=== PATIENT | male | born 1960 | race Caucasian/White ===

== ENCOUNTER 2018-01-01 20:51 | Observation (INO) ==
[2018-01-01] MEDS ORDERED: Nitroglycerin 0.4 MG TAB.SUBL SL PRN (22:52)
--- NOTE | 2018-01-01 22:58 | Emergency Department Note ---
Disposition Clinical Impression: CHF (congestive heart failure) Qualifiers: Heart failure type: unspecified Heart failure chronicity: acute on chronic Qualified Code(s): I50.9 - Heart failure, unspecified Disposition: Admitted As Inpatient Condition: Good Referrals: Richy Mc DO [Primary Care Provider] - Emanuel Baires Jr, MD [Family Provider] - Forms: ED Satisfaction Letter Time of Disposition: 00:25 SOB HPI - General Chief Complaint: ED Shortness of Breath/Dyspnea Stated Complaint: "CHF" Time Seen by Provider: 01/01/18 22:44 Source: patient Limitations: no limitations - History of Present Illness This is a 57-year-old male who reports being short of breath for the last 6 weeks, but especially worse in the 2 days prior to arrival. He has had a significant workup through his family doctor, with several test just 2 days ago , but did not know the results until he went to urgent care earlier today. At that time, he was told that he has heart failure with a poor ejection fraction. He was also recommended to come to the emergency department for treatment. - Related Data Home Medications Medication Instructions Recorded Confirmed Betaine HCl 01/01/18 Allergies Allergy/AdvReac Type Severity Reaction Status Date / Time No Known Allergies Allergy Verified 01/01/18 15:31 All systems ED: reviewed and negative except as stated. Cardiovascular: Denies: chest pain Respiratory: Reports: dyspnea, other (Orthopnea) Gastrointestinal: Denies: abdominal pain, nausea, vomiting, diarrhea, constipation, hematemesis, melena, hematochezia Past Medical History - Past Medical History Medical history: Reports: hypertension Psychiatric history: Reports: no psych history - Social History Smoking Status: Current some day smoker Smokeless Tobacco Status: No Alcohol use: Reports: occasionally Drug use: Reports: marijuana Physical Exam - General Limitations: no limitations General appearance: alert, in no apparent distress - Head Head exam: atraumatic, normocephalic, normal inspection - Eye Eye exam: Present: normal appearance, PERRL, EOMI - Chest Chest inspection: Present: normal inspection, symmetric chest wall rise - Respiratory Respiratory exam: Present: other (Breath sounds are clear bilaterally, diminished in the bases) - Cardiovascular Cardiovascular exam: Present: normal rhythm, tachycardia, normal heart sounds - Abdominal Exam Abdominal exam: Present: soft, Non-Tender. Absent: tenderness, distention, guarding, rebound, rigidity - Extremities Exam Extremities exam: Present: normal inspection, full ROM. Absent: tenderness, pedal edema - Neurological Exam Neurological exam: Present: alert, oriented X3 - Psychiatric Psychiatric exam: Present: normal affect, normal mood - Skin Skin exam: Present: warm, dry, intact, normal color Course Course Narrative: I reviewed his echocardiogram, chest x-ray, and pulmonary function test reports. The echocardiogram showed an ejection fraction of 25%. Vital Signs Temperature 98.3 F 01/01/18 20:58 Pulse Rate 116 01/01/18 20:58 Respiratory Rate 22 01/01/18 20:58 Blood Pressure 130/105 01/01/18 20:58 O2 Sat by Pulse Oximetry 97 01/01/18 20:58 Temperature 98.3 F 01/01/18 22:52 Pulse Rate 108 01/01/18 23:17 Respiratory Rate 14 01/01/18 23:17 Blood Pressure 134/94 01/01/18 23:17 O2 Sat by Pulse Oximetry 97 01/01/18 23:17 Oxygen Delivery Oxygen Delivery Room Air Shortness of Breath/Dyspnea - [facility] Narrative Medical decision making narrative: This is a 57-year-old male with congestive heart failure. I discussed his case with the on-call hospitalist, who accepted him for admission He does not appear to be fluid overloaded, and was given nitroglycerin and enalaprilat for afterload reduction. - Medical Records Medical records reviewed: Yes I reviewed the patient's medical records. Summary of his echo is noted above. - Lab Data Lab results narrative: CBC was unremarkable BMP was unremarkable Troponin was slightly elevated at 0.07 Result diagrams: 01/01/18 23:00 01/01/18 23:00 Lab Results 01/01/18 01/01/18 Range/Units 23:00 23:00 WBC 9.5 (4.3-11.1) K/mcL RBC 4.85 (4.19-5.50) M/mcL Hgb 15.2 (12.9-16.9) g/dL Hct 45.3 (37.5-50.1) % MCV 93.4 (83.0-100.0) fL MCH 31.3 (28.0-33.3) pg MCHC 33.6 (31.6-35.5) g/dL RDW 14.3 (11.5-14.5) % Plt Count 174 (140-400) K/mcL MPV 13.3 H (9.4-12.4) fL Immature Gran % 0.3 (0-4) % Seg Neutrophils % 82.5 % Lymphocytes % 10.6 % Monocytes % 5.4 % Eosinophils % 0.9 % Basophils % 0.3 % Neutrophils # 7.9 (1.6-8.9) K/mcL Lymphocytes # 1.0 (0.6-4.6) K/mcL Monocytes # 0.5 (0.0-1.3) K/mcL Eosinophils # 0.1 (0.0-0.6) K/mcL Basophils # 0.0 (0.0-0.2) K/mcL Sodium 139 (136-145) mEq/L Potassium 3.8 (3.5-5.1) mEq/L Chloride 110 H (98-107) mEq/L Carbon Dioxide 19 L (23-29) mEq/L BUN 17 (6-20) mg/dL Creatinine 0.94 (0.70-1.30) mg/dL Est GFR ( Amer) > 60 (> 60) Est GFR (Non-Af Amer) > 60 (> 60) BUN/Creatinine Ratio 18 (6-26) Glucose 120 H (70-105) mg/dL Calculated Osmolality 291 (280-300) Calcium 9.3 (8.6-10.3) mg/dL Troponin I 0.07 H* (< 0.04) ng/mL - Radiology Data Radiology results reviewed: Yes I reviewed the patient's radiology results. Chest x-ray showed interstitial edema - EKG Data EKG attestation: Yes I reviewed and interpreted this EKG. EKG results narrative: ECG shows sinus tachycardia, 117 bpm, normal intervals, normal axis, biphasic T waves in V5 with T-wave inversion in V6, unremarkable ST segments He had a time period while in the emergency department with several episodes of bigeminy. Critical Care Time Critical Care Time: Yes Total Critical Care Time: 20 Attestation: Time spent was independent of separately billable procedures
[2018-01-01 23:11] LABS: Basophils % 0.3 %; Eosinophils # 0.1 K/mcL (0.0-0.6); Eosinophils % 0.9 %; Hematocrit 45.3 % (37.5-50.1); Hemoglobin 15.2 g/dL (12.9-16.9); Immature Granulocytes % 0.3 % (0-4); Lymphocytes % 10.6 %; Mean Corpuscular HGB Conc 33.6 g/dL (31.6-35.5); Mean Corpuscular Hemoglobin 31.3 pg (28.0-33.3); Mean Corpuscular Volume 93.4 fL (83.0-100.0); Mean Platelet Volume 13.3 fL (9.4-12.4); Monocytes # 0.5 K/mcL (0.0-1.3); Monocytes % 5.4 %; Neutrophils # 7.9 K/mcL (1.6-8.9); Platelet Count 174 K/mcL (140-400); Red Blood Count 4.85 M/mcL (4.19-5.50); Red Cell Distribution Width 14.3 % (11.5-14.5); Segmented Neutrophils % 82.5 %
[2018-01-01 23:32] LABS: BUN/Creatinine Ratio 18 (6-26); Blood Urea Nitrogen 17 mg/dL (6-20); Calcium 9.3 mg/dL (8.6-10.3); Carbon Dioxide 19 mEq/L (23-29); Chloride 110 mEq/L (98-107); Glucose 120 mg/dL (70-105); Osmolality,Calculated 291 (280-300); Potassium 3.8 mEq/L (3.5-5.1); Sodium 139 mEq/L (136-145); eGFR For Non-African Americans > 60 (> 60)
[2018-01-01 23:40] LABS: Troponin I 0.07 ng/mL (< 0.04)
[2018-01-02] MEDS ORDERED: Ibuprofen 400 MG TABLET PO ONE (04:15)
[2018-01-02] MEDS ORDERED: Naloxone 0.4 MG/ML INJ IVP PRN (04:26)
[2018-01-02] MEDS ORDERED: Acetaminophen 325 MG TABLET PO PRN (04:26)
[2018-01-02] MEDS ORDERED: traMADol 50 MG TABLET PO PRN (04:26)
[2018-01-02] MEDS: *HR* Heparin 5,000 UNIT/ML VIAL SQ SCH ×2 (05:04→18:03)
--- NOTE | 2018-01-02 05:36 | Internal Med History&Physical ---
Date of Encounter: 01/02/18 Time of Encounter: 04:05 Internal Medicine - H&P: HPI Chief complaint: SOB; orthopnea; chest tightness Admitted From: Emergency Dept Plans for Post Hospital Care: Home History of present illness: Mr. Wiggins is a 57 year old male who presents with a several month history of progressive dyspnea, dyspnea on exertion, orthopnea, and paroxysmal nocturnal dyspnea. These symptoms provoked anxiety attacks and panic attacks since he could not breathe. He saw his family doctor last week who ordered an echocardiogram and PFTs this past Tuesday (3 days ago). He felt that he was having panic attacks because of the difficulty in breathing. Over the weekend, his symptoms worsened to the point where he could not breathe and was becoming more and more anxious. He therefore came to the ER where he was seen and evaluated and diagnosed with acute congestive heart failure. He was subsequently admitted to the hospitalist service. Upon my assessment of the patient, he confirms the above history. He has had some vague chest tightness, especially with exertion. He denies any fevers, cough, congestion, shakes, chills, or night sweats. He denies any prior cardiac history. He has had bouts of hypertension in the past, but he has never been treated. He states normally his blood pressure runs about 120s-130s systolic. He denies any recent tick bites or mosquito bites or bug bites resulting in any flulike illness this summer. He denies any history of thyroid disease. He is long-time smoker and quit roughly 1 week ago. He denies any heavy alcohol use or any drug use. He denies any leg or ankle swelling, but he has complained of some increasing abdominal girth and fullness in his abdomen. I reviewed his echocardiogram that was performed just 3 days ago. He has finding of ejection fraction of 25% with a dilated left ventricle and moderate pulmonary hypertension. He also had pulmonary function tests performed which revealed mild obstructive airways disease. Past Med Surg Social Fam HX - Past Medical History Attestation: Yes The following information was validated with the patient. Source: patient, old records reviewed, other (ER notes; ECHO/PFTS performed 3 days ago) Medical history: COPD, hypertension Psychiatric history: no psych history - Past Surgical History Surgical History: no surgical history (except dental) Additional surgical history: dental - Social History Smoking Status: Former smoker (quit 1 week ago; > 40 pack year h/o smoking) Smokeless Tobacco Status: No Alcohol use: occasionally Drug use: marijuana Occupational status: employed Current living situation: Home - Independent Activity Level: Independent ambulation Recent Out of Country Travel Within the Last 8 Weeks: No - Family History Mother Living Status: Still Living Hx Family Cardiac Disorders: No Father Living Status: Still Living Hx Family Cardiac Disorders: No Internal Medicine - H&P: Meds 3 Allergy/AdvReac Type Severity Reaction Status Date / Time No Known Allergies Allergy Verified 01/01/18 15:31 - Constitutional Constitutional: fatigue, weight gain, no chills, no fever(s), no night sweats - EENT Eyes: no blurry vision, no change in vision Ears: no ear pain, no tinnitus Nose, mouth and throat: no nasal congestion, no sinus pressure, no sore throat - Cardiovascular Cardiovascular ROS IM: chest pain (chest tightness with exertion), diaphoresis, dyspnea, dyspnea on exertion, orthopnea, palpitations, paroxysmal nocturnal dyspnea - Respiratory Respiratory: dyspnea, dyspnea on exertion, no cough, no hemoptysis, no chest congestion, no excessive phlegm production, no change in phlegm color - Gastrointestinal Gastrointestinal: bloating, no abdominal pain, no diarrhea, no hematemesis, no hematochezia, no melena, no nausea, no vomiting - Genitourinary Genitourinary ROS male: no dysuria, no flank pain, no hematuria - Musculoskeletal Musculoskeletal ROS IM: no arthralgias, no back pain - Integumentary Integumentary IM: no rash, no jaundice - Neurological Neurological ROS: no dizziness, no focal weakness, no frequent falls, no headache(s) - Psychiatric Psychiatric: anxiety, no depression - Endocrine Endocrine IM: fatigue, no cold intolerance, no heat intolerance, no polydipsia, no polyphagia, no polyuria - Allergic/Immunologic Allergic/Immunologic: no GI upset with certain foods - Constitutional Vitals: Temp Pulse Resp BP Pulse Ox 98.9 F 97 16 116/79 96 01/02/18 03:24 01/02/18 03:24 01/02/18 03:24 01/02/18 03:24 01/02/18 03:24 General appearance: Present: cooperative, mild distress (anxious), A&O X 3, pleasant, answers questions appropriately Exam: see below - Head Head exam: Present: atraumatic, normal inspection - Eye Eye exam: Present: EOMI, PERRL. Absent: scleral icterus Pupils: Present: normal accommodation - ENT ENT exam: Present: mucous membranes dry, normal exam, normal oropharynx - Neck Neck exam general surgery: Present: full ROM, supple. Absent: lymphadenopathy, tenderness, nuchal rigidity, thyromegaly - Respiratory Respiratory exam: Present: rales (both bases about 1/[address] up), respiratory distress (mild). Absent: accessory muscle use, chest wall tenderness, prolonged expiratory phase, rhonchi, wheezes, tachypnea - Cardiovascular Cardiovascular exam: Present: distant heart sounds, RRR, +S1, +S2. Absent: diastolic murmur, JVD (not appreciated), systolic murmur - GI/Abdominal GI/Abdominal exam: Present: normal bowel sounds. Absent: hepatomegaly, mass, rebound, splenomegaly, tenderness Additional comments: + increased girth - Extremities Exam Extremities exam: Present: full ROM, normal capillary refill, pedal edema (trace ), warm, radial pulses palpable and symmetrical. Absent: calf tenderness, joint swelling, tenderness - Back Exam Back exam: Absent: CVA tenderness (L), CVA tenderness (R) - Neurological Exam Neurological exam: Present: alert, CN II-XII intact, oriented X3, no focal deficits, strengths equal and symetr throughout - Psychiatric Psychiatric exam: Present: normal affect, normal mood - Skin Skin exam: Present: dry, intact, warm Internal Med - H&P Results - Labs CBC & Chem 7: 01/01/18 23:00 01/01/18 23:00 - EKG Data -: EKG Interpreted by Myself - EKG Data Prior EKG available for review: no EKG comments: 01/02/18 05:45 sinus tachycardia; high voltage with LVH criteria - Diagnostic Studies Chest x-ray Status: image reviewed by me (large heart/dialted heart shadow; CHF findings) - Assessment and plan (1) Congestive heart failure Current Visit: Yes Status: Acute Assessment and plan: 1. New diagnosis of acute CHF. 2. Etiology unclear. 3. Will treat with diuretics, low dose BB (Coreg), fluid restriciton, ASA, STATIN, and, when hemodynamically stable, add JULIETA. 4. Consult cardiology for likely LHC to evaluate for CAD/ischemic etiology. 5. ECHO already performed 3 days ago and reviewed -- EF 25% with dilated LV and pulmonary HTN (moderate). Qualifiers: Heart failure type: systolic Heart failure chronicity: acute Qualified Code(s): I50.21 - Acute systolic (congestive) heart failure (2) Dilated cardiomyopathy Current Visit: Yes Status: Acute Assessment and plan: 1. Cardiology consult as above. 2. Needs C at some point to evaluate for CAD. 3. Check TSH. 4. If etiology undetermined, could possibly be due to viral etiology ( Coxsackie virus, summertime viruses) or tick-borne illness. May need ID consult and/or endocardial biopsy/work-up (?[facility]). (3) COPD (chronic obstructive pulmonary disease) Current Visit: Yes Status: Chronic Assessment and plan: 1. No acute process. 2. Will order PRN Duonebs. Qualifiers: COPD type: emphysema Emphysema type: panlobular Qualified Code(s): J43.1 - Panlobular emphysema (4) DVT prophylaxis Current Visit: Yes Status: Acute Assessment and plan: 1. Heparin SQ.
[2018-01-02] MEDS ORDERED: Ipratropium/Albuterol Neb 3 ML IH PRN (06:00)
--- NOTE | 2018-01-02 08:01 | Cardiology Consult Note ---
Date of Encounter: 01/02/18 Time of Encounter: 09:17 Assessment and Plan (1) Congestive heart failure Current Visit: Yes Status: Acute New onset, possibly secondary to ischemic cardiomyopathy or alcohol abuse Multiple risk factors (age, smoker, htn) ECHO - EF 25%, dilated RV and LV, severe global LV systolic dysfunction, moderate pulmonary HTN Recommend cardiac catheterization to evaluate for CAD Continue Lasix IV 40 BID as tolerated Continue home meds as tolerated Qualifiers: Heart failure type: systolic Heart failure chronicity: acute Qualified Code(s): I50.21 - Acute systolic (congestive) heart failure (2) Dilated cardiomyopathy Current Visit: Yes Status: Acute See above Consider ischemic or alcoholic or idiopathic cause (3) DVT prophylaxis Current Visit: Yes Status: Acute SC Heparin Discussion w patient/family: The assessment and plan as outlined above was discussed with the patient and/or family members who expressed understanding and agreement. All questions were answered. Thank you for involving us in the care of your patient. Please call with any questions. History of Present Illness Consult date: 01/02/18 Requesting physician: Alan York Consult reason: New onset CHF Chief complaint: Shortness of breath History of present illness: Mr. Wiggins is a 57 year old male with a history of hypertension, COPD, tobacco use who presented with new onset CHF found to have an EF 25% and severe global left ventricle systolic dysfunction on 12/30 ECHO, no previous cardiac history. He reports progressive shortness of breath and bloating over the past 8 weeks, mostly over the past week. He initially attributed his symptoms to anxiety, as his job is very stressful and requires a lot of travel. He's also had recent relational stressors that he thought may have caused increased anxiety. He has smoked on and off for many years with an estimated 40 pack year history. He recently quit smoking a couple weeks ago. He admits to drinking 5-6 beers per day 3-4 times per week. He denies any chest pain, or radiation of pain. He complains mostly of bloating and shortness of breath, especially on exertion. Past Med Surg Social Fam HX - Past Medical History Medical history: COPD, hypertension Psychiatric history: no psych history - Past Surgical History Surgical History: no surgical history (except dental) Additional surgical history: dental - Social History Smoking Status: Former smoker (quit 1 week ago; > 40 pack year h/o smoking) Smokeless Tobacco Status: No Alcohol use: occasionally Drug use: marijuana - Family History Mother Living Status: Still Living Hx Family Cardiac Disorders: No Father Living Status: Still Living Hx Family Cardiac Disorders: No Medications and Allergies No Known Home Drugs 01/02/18 [History] 3 Allergy/AdvReac Type Severity Reaction Status Date / Time No Known Allergies Allergy Verified 01/02/18 08:30 All Systems Review: The remainder of the systems were reviewed and are negative - Cardiovascular Cardiovascular: dyspnea on exertion, orthopnea, no chest pain at rest, no chest pain with exertion - Gastrointestinal Gastrointestinal: other (admits to bloating), no abdominal pain - Psychiatric Psychiatric: anxiety Physical Examination Vital Signs, Last 4 Hours Temp Pulse Resp BP Pulse Ox 01/02/18 07:21 98.1 F 100 16 111/77 96 General: Conversant, No Apparent Distress HEENT: Atraumatic, Normocephaly Neck: No JVD Cardiac: Reg Rate and Rhythm, Normal S1 and S2, No Murmur Lungs: Normal Breath Sounds, No Wheeze, Rales, Rhonchi Neuro: Alert and responsive Abdomen: Soft, Non-Tender Musculoskeletal: No Chest Wall Tenderness Extremities: No Edema Results 01/01/18 23:00 01/01/18 23:00 Lab Results 01/02/18 05:27 Troponin I 0.06 H* Consult Discharge Plan - Plan Referrals: Richy Mc DO [Primary Care Provider] - Emanuel Baires Jr, MD [Family Provider] -
[2018-01-02] MEDS: Furosemide 40 MG/4 ML VIAL IVP SCH ×2 (08:30→17:58)
[2018-01-02] MEDS: Aspirin 81 MG TAB.CHEW PO SCH (08:30)
--- NOTE | 2018-01-02 10:05 | Pre-Sedation Evaluation ---
Pre-sedation evaluation - Pre-sedation checklist Date of procedure: 01/02/18 Procedure: [facility] Recent Vitals: Last Vital Signs Temp 98.1 F 01/02/18 07:21 Pulse 100 01/02/18 07:21 Resp 16 01/02/18 07:21 BP 111/77 01/02/18 07:21 Pulse Ox 96 01/02/18 07:21 H&P (including ROS) documented in medical record: No Previous reaction to sedatives/anesthetics: No Dietary Status: NPO after Midnight Dentition: No loose teeth or bridges ASA Classification *see protocol: CLASS II-Mild systemic disease Plan of Care: Pt appropriate candidate for procedure/moderate/conscious sedation , Risks/benefits of procedure/sedation discussed w/ patient/family Cardiac Registry (Cardio Only) - Functional Capacity Functional Capacity: >=4 METS with symptoms - Clincal Frailty Scale Clinical Frailty Scale: Managing Well
--- NOTE | 2018-01-02 12:33 | Internal Med Progress Note ---
Hospitalist Progress Note - Encounter Date of Encounter: 01/02/18 Time of Encounter: 10:25 - Subjective Interval History: H&P reviewed. 57-year-old male with history of COPD, hypertension, tobacco abuse, is admitted for new onset systolic heart failure. Codon on 12/30 showed EF of 25% with moderately dilated LV and mildly dilated/hypokinetic RV. Assoiated with moderate to severe mitral regurgitation and moderate pHTN. States that his breathing is about the same and complains of significant orthopnea. Not requiring any O2 however. No chest pain, diaphoresis, N/V. He drinks about 5-6 beers/day 3-4x/week. - Exam Vitals: Temp Pulse Resp BP Pulse Ox 98.1 F 98 16 99/72 98 01/02/18 11:00 01/02/18 11:00 01/02/18 11:00 01/02/18 11:00 01/02/18 11:00 Exam: General: Alert and oriented, not in acute distress. Cardiovascular:Normal S1 & S2, No JVD. Pulse regular. Lungs: Bibasilar crackles Abdomen:Soft, non-tender, no rigidity. Extremities:No deformity or swelling Skin:Normal color, no rash, no lesions. - Assessment and Plan (1) Congestive heart failure Current Visit: Yes Status: Acute Assessment and Plan: New diagnosis of acute systolic HF, ECHO already performed 3 days ago and reviewed -- EF 25% with dilated LV and RV as well as pulmonary HTN (moderate) ?EtOH-related, ischemic workup pending check TSH IV lasix 40mg BID ASA, statin, will hold bb as he has not been on it and he is in acute decompensation start JULIETA if BP tolerates cardiology consult for ischemic eval (2) Dilated cardiomyopathy Current Visit: Yes Status: Acute Assessment and Plan: as above (3) COPD (chronic obstructive pulmonary disease) Current Visit: Yes Status: Chronic Assessment and Plan: not in acute exacerbation PRN Duonebs. (4) DVT prophylaxis Current Visit: Yes Status: Acute Assessment and Plan: Heparin SQ - Time Spent with Patient Total time spent is greater than 50% in coordination of care (as documented) at patient's floor/unit and/or counseling patient: Plan of Care Discussed with: nurse Internal Medicine: Result - Labs CBC & Chem 7: 01/01/18 23:00 01/01/18 23:00 Labs: Cardiac Enzymes 01/02/18 Range/Units 05:27 Troponin I 0.06 H* (< 0.04) ng/mL Consult Discharge Plan - Plan Referrals: Richy Mc DO [Primary Care Provider] - Emanuel Baires Jr, MD [Family Provider] - (1) Congestive heart failure Qualifiers: Heart failure type: systolic Heart failure chronicity: acute Qualified Code( s): I50.21 - Acute systolic (congestive) heart failure (3) COPD (chronic obstructive pulmonary disease) Qualifiers: COPD type: emphysema Emphysema type: panlobular Qualified Code(s): J43.1 - Panlobular emphysema
--- NOTE | 2018-01-02 13:54 | Pre-Sedation Evaluation ---
Pre-sedation evaluation - Pre-sedation checklist Date of procedure: 01/02/18 Procedure: [facility] Recent Vitals: Last Vital Signs Temp 98.1 F 01/02/18 11:00 Pulse 98 01/02/18 11:00 Resp 16 01/02/18 11:00 BP 99/72 01/02/18 11:00 Pulse Ox 98 01/02/18 11:00 H&P (including ROS) documented in medical record: No Previous reaction to sedatives/anesthetics: No Dietary Status: NPO after Midnight Dentition: No loose teeth or bridges ASA Classification *see protocol: CLASS II-Mild systemic disease Cardiac Registry (Cardio Only) - Functional Capacity Functional Capacity: >=4 METS with symptoms - Clincal Frailty Scale Clinical Frailty Scale: Vulnerable
[2018-01-02] MEDS ORDERED: 0.9 % Sodium Chloride 1,000 ML ONE ×2 (15:56→16:27)
[2018-01-02] MEDS ORDERED: *HR* Heparin 10,000 UNIT/10 ML VIAL ONE (15:57)
[2018-01-02] MEDS ORDERED: Nitroglycerin 1,000 MCG/10 ML VIAL IV ONE (15:57)
[2018-01-02] MEDS ORDERED: Heparin 1,000 UNITS/500 mL 500 ML ONE (15:57)
[2018-01-02] MEDS ORDERED: ISOVUE-370 200 ML INFUS..BTL IV ONE (15:57)
[2018-01-02] MEDS ORDERED: *HR* FentaNYL (PF) 100 MCG/2 ML VIAL ONE (16:27)
[2018-01-02] MEDS ORDERED: *HR* Midazolam HCl 2 MG/2 ML VIAL ONE (16:27)
--- NOTE | 2018-01-02 17:20 | Invasive Diagnostic Lab Proc ---
Name: Lewis Wiggins Date of Study: 01/02/2018 Date: 1960 Ht: 68.9in Medical Record#: [id number] Age: 57 Wt: 165.35lb Gender: Male BSA: 1.9 Order #: [id number] BMI: 24.49 Physicians Procedure Physician: oMy Tesfaye MD Referring MD: Referring MD: Staff Name Position Time In Ej Tejada RN Regulatory Agency Director 04:27 PM Allison Rahman RN Monitor 04:27 PM Svetlana Valenzuela RT (R) Scrub 04:35 PM Procedures Performed Procedure L HRT ARTERY/VENTRICLE ANGIO Pre-Procedure Checklist Informed consent is complete signed and on chart. H&P is on chart. ID band is on and ID verified with patient. Patient NPO for procedure The procedure was described for the patient and questions were answered. Blood Pressure: 111/77 ECG is on chart. Rhythm: NSR Plan of Care Patient will tolerate the procedure without complications. Adequate level of comfort will be maintained. Hemodynamics will remain stable Patient will recover from procedure without complications. Respiratory function will be maintained. Cardiac rhythm will remain stable. Patient temperature will be maintained. Patient and/or family have verbalized understanding of the procedure. Patient Education Chief Complaint/Reason for Test: Cardiac Cath Developmental Category: Adult (18-64 years) Developmentally Appropriate for Age: Yes Learning Barriers: None Education Needs: Procedure Education Method: Verbal Information Taught: Cardiac Cath Educational Evaluation: Able to repeat information Intravenous Access Time IV Size Location DC'd Fluid/Drip Rate Units RN 18g 1 /" Patent On Arrival Rt Antecubital Allergies No Known Allergies Vital Signs Time BP (mmHg) HR (bpm) O2 Sat. RR (bpm) LOC 04:32 PM / % 5 = Fully awake and oriented or at pre-proc level 04:32 PM / % 4 = Oriented but drowsy 04:33 PM 110 / 87 100 98 % 15 04:38 PM 118 / 91 102 97 % 19 04:43 PM 114 / 87 101 96 % 19 04:48 PM 108 / 80 94 96 % 11 04:53 PM 117 / 75 86 94 % 18 04:58 PM 114 / 82 86 98 % 10 Procedural Medications Time Medication Dose Units Method Given By 04:32 PM Oxygen 2 L/min nasal cannula Ej Tejada RN 04:35 PM Versed 1 mg Intravenous Ej Tejada RN 04:35 PM Fentanyl 50 mcg Intravenous Ej Tejada RN 04:47 PM Lidocaine 2% 10 ml Subcutaneous Moy Tesfaye MD ASA Classification: CLASS II- Mild systemic disease (i.e. well-controlled diabetes, hypertension, asthma, cigarette smoking) Nirmala Score Preprocedure Postprocedure Activity 2- Moves 4 extremities sustained head lift Activity 2- Moves 4 extremities sustained head lift Circulation 2- SBP +/= 20 points of pre-anesthetic level Circulation 2- SBP +/= 20 points of pre-anesthetic level Consciousness 2- Awake and alert oriented x 3 Consciousness 2- Awake and alert oriented x 3 O2 Saturation 2- Able to maintain O2 satruation of 92% on room air O2 Saturation 2- Able to maintain O2 satruation of 92% on room air Respiratory 2- Able to deep breathe and cough well Respiratory 2- Able to deep breathe and cough well Total Score 10 Total Score 10 Contrast Agent: Isovue Diagnostic Contrast: 69 ml Total Contrast: 69 ml Fluoro Dose: 4819 mGy Procedure Log Time Note Enter By 04:27 PM Pt arrived to [facility] at 16:27 kmavis 04:27 PM ASA Class CLASS II- Mild systemic disease (i.e. well-controlled diabetes, hypertension, asthma, cigarette smoking) kmavis 04:27 PM Ej Tejada RN Position: Regulatory Agency Director Time in: 16:27 kmavis 04:27 PM Allison Rahman RN Position: Monitor Time in: 16:27 avis 04:27 PM Patient charges- Angio tray pack, Navilyst 3mm J, Pulse Oximetry and ACIST tubing and transducer kmavis :27 PM Physician arrived 16:27 kmavis 04:27 PM Meet and greet completed kmavis :27 PM Sign in performed according to hospital policy. kmavis 04:28 PM Procedure start 16:28 kmavis 04:32 PM Hair removed from procedure site in holding area using clippers. Bilateral groin prepped with Chloraprep by Ej Tejada RN, then patient was draped. Skin intact. kmavis 04:32 PM Time: 16:32 Oxygen on at 2 L/min per nasal cannula by [facility] 04:32 PM Time: 16:32LOC: 5 = Fully awake and oriented or at pre-proc level kmavis 04:33 PM Time: 16:32 Patient comfortable and pain free: Yes avis 04:33 PM Case Start 04:33 PM CathStat 04:33 PM Vitals capture started with the following parameters, Patient=Adult, Interval=5 min, Initial Fqmnoygu=516 mmHg, Deflation Rate=5 mmHg, Cuff placed on Right Arm 04:33 PM JT=991 bpm, NMFC=535/87 mmhg, SpO2=98.0 %, Resp=15 B/min, Comment=sr 04:35 PM Svetlana Valenzuela RT (R) Position: Scrub Time in: 16:35 kmavis 04:35 PM Time: 16:35 Versed 1 mg Intravenous Given by Ej Tejada RN [facility] 04:35 PM Time: 16:35 Fentanyl 50 mcg Intravenous Given by Ej Tejada RN [facility] 04:36 PM Recorded ECG: AC=236 Condition=Condition 1 04:37 PM Clinical Presentation: Unstable angina kmavis 04:38 PM XY=575 bpm, AURM=403/91 mmhg, SpO2=97.0 %, Resp=19 B/min, EtCO2=26 mmHg, Comment=sr 04:43 PM KR=731 bpm, LNDF=635/87 mmhg, SpO2=96.0 %, Resp=19 B/min, EtCO2=26 mmHg, Comment=sr 04:46 PM Time out performed according to hospital policy kmavis 04:47 PM Time: 16:47 10 ml Lidocaine 2% to right groin Subcutaneous Given by Moy Tesfaye MD avis 04:48 PM Time: 16:32LOC: 4 = Oriented but drowsy kmavis 04:48 PM Time: 16:33 Patient comfortable and pain free: Yes avis 04:48 PM Micro-Introducer Kit utilized for sheath placement kmavis 04:48 PM 3ml of contrast hand injected to right groin kmavis 04:48 PM Access obtained by percutaneous puncture. 6Fr 10cm Terumo [place] sheath placed in right Femoral artery. [id number] avis 04:48 PM HR=94 bpm, WOQY=647/80 mmhg, SpO2=96.0 %, Resp=11 B/min, EtCO2=23 mmHg, Comment=sr 04:49 PM 5Fr FR 4 catheter inserted over the wire DNC kmavis 04:49 PM RCA angiography performed in multiple views. kmavis 04:49 PM Recorded Pressure: Ao, HR=89, Condition=Condition 1 (Aorta) Ao 101/30/62 04:51 PM Catheter selectively placed in left ventricle kmavis 04:51 PM Catheter removed kmavis 04:51 PM 5Fr FL 4 catheter inserted over the wire DN kmavis 04:51 PM LCA angiography performed in multiple views. kmavis 04:52 PM Recorded Pressure: Ao, HR=92, Condition=Condition 1 (Aorta) Ao 99/52/74 04:53 PM HR=86 bpm, BLRF=076/75 mmhg, SpO2=94.0 %, Resp=18 B/min, EtCO2=28 mmHg, Comment=sr 04:54 PM Catheter removed kmavis 04:55 PM Coronary Dominance: right kmavis 04:55 PM 5Fr Pigtail catheter inserted over the wire DN kmavis 04:56 PM Lesion found in Proximal RCA. Pre Stenosis: 65 Pre GUCCI Flow: kmavis 04:56 PM Right Coronary, Right Posterior Descending Arteries with Right Posterolateral and Acute Marginal branches with 65 % stenosis. If graft is supplying this area, 0 % stenosis kmavis 04:56 PM Recorded Pressure: Ao, XY=387, Condition=Condition 1 (Aorta) Ao 105/18/63 04:57 PM Recorded Pressure: LV, Ao, HR=91, Condition=Condition 1 (Left Ventricle) LV 102/11/29, (Aorta) Ao 103/17/58 04:57 PM Recorded Pressure: LV, Ao, HR=94, Condition=Condition 1 (Left Ventricle) LV 109/16/33, (Aorta) Ao 119/68/93 04:58 PM Procedure completed at 16:58 01/02/2018 kmavis 04:58 PM Did you address GUCCI flow and Dominance? Yes kmavis 04:58 PM HR=86 bpm, GTYX=510/82 mmhg, SpO2=98.0 %, Resp=10 B/min, EtCO2=32 mmHg, Comment=sr 05:00 PM Arterial sheath pulled, Angio-seal closure device used and was Successful [id number] S/N. kmavis 05:01 PM Sign out completed: Radiation Dose 433.76 mGy, 4818.61 cGy/cm2 Fluoro Time: 2.4 Isovue 370 - 200ml contrast 68.9 ml given by Moy Tesfaye MD. Complications: NoneCardiac Rehab Consult needed: NoConfirmed administered medications: Yes kmavis 05:01 PM Isovue 370 - 200ml,1 Bottle(s) used. kmavis 05:01 PM Estimated Blood Loss: minimal kmavis 05:01 PM Post ECG NSR kmavis 05:01 PM Post Blood Pressure 114/82 kmavis 05:02 PM 17:01 Post Pulses Bilateral DP & PT 2+ kmavis 05:02 PM Information taught Cardiac Cath and Angioseal kmavis 05:02 PM Education needs Procedure, Plan of Care, Safe & Effective Use of Medications, and Responsibilities of Patient in Care kmavis 05:02 PM Learning barriers :None kmavis 05:02 PM Education Methods Verbal kmavis 05:02 PM Education evaluation Able to repeat information kmavis 05:02 PM Site status No bleeding/hematoma - Rt Groin as reported by Svetlana Valenzuela RT (R) at 17:02 kmavis 05:02 PM Opsite applied kmavis 05:05 PM Family placed in consult room. kmavis 05:05 PM Complications: None kmavis 05:06 PM Report given to Maria Eugenia MAYER Pt taken to Holding room Room #34. 17:06 kmavis 05:07 PM Patient out of room: 17:07 kmavis 05:09 PM Lesion found in Distal Circumflex. Pre Stenosis: 25 Pre GUCCI Flow: kmavis 05:09 PM Circumflex, Obtuse Marginal, Left Posterior Descending, and Left Posterolateral Coronary Arteries with 25 % stenosis. If graft is supplying this area, 0 % stenosis kmavi Complications Complication None None Hemodynamics Pressures Site Systolic/A Wave Diastolic/V Wave Mean AO 101 30 62 AO 99 52 74 AO 105 18 63 LV 102 11 29 AO 103 17 58 LV 109 16 33 AO 119 68 93 Post Procedure Information Blood Pressure: 114/82 mmHg Rhythm: NSR Post procedural instructions were given Closure Device Time Device Success/Fail 01/02/2018 5:07:00 PM Angio-Seal VIP Successful Site Checks Time Location Status Staff Sheath In? Note 05:02 PM Rt Groin No bleeding/hematoma Svetlana Valenzuela RT (R) Pulses Time Site Pre-Procedure Post-Procedure Note Bilateral radial 2+ Bilateral DP & PT 2+ 5:01:00 PM Bilateral DP & PT 2+ Updated by Allison Rahman RN on 01/02/2018 5:13:32 PM electronically signed on 01/02/2018 5:14:24 PM with status of Final
[2018-01-03 06:30] LABS: Basophils % 0.3 %; Eosinophils # 0.1 K/mcL (0.0-0.6); Eosinophils % 1.2 %; Hematocrit 45.7 % (37.5-50.1); Hemoglobin 15.2 g/dL (12.9-16.9); Immature Granulocytes % 0.3 % (0-4); Lymphocytes # 0.7 K/mcL (0.6-4.6); Lymphocytes % 7.6 %; Mean Corpuscular HGB Conc 33.3 g/dL (31.6-35.5); Mean Corpuscular Hemoglobin 31.3 pg (28.0-33.3); Mean Corpuscular Volume 94.2 fL (83.0-100.0); Mean Platelet Volume 13.5 fL (9.4-12.4); Monocytes # 0.5 K/mcL (0.0-1.3); Monocytes % 5.5 %; Neutrophils # 8.2 K/mcL (1.6-8.9); Platelet Count 161 K/mcL (140-400); Red Blood Count 4.85 M/mcL (4.19-5.50); Red Cell Distribution Width 14.3 % (11.5-14.5); Segmented Neutrophils % 85.1 %
[2018-01-03 06:33] LABS: INR 1.4; Prothrombin Time 15.2 Seconds (9.4-12.1)
[2018-01-03 06:36] LABS: Activated Partial Thrombo Time 31.5 Seconds (26.0-36.0)
[2018-01-03] MEDS: *HR* Heparin 5,000 UNIT/ML VIAL SQ SCH (06:44)
[2018-01-03 06:50] LABS: Alanine Aminotransferase 18 Units/L (7-52); Albumin 3.7 g/dL (3.5-5.7); Albumin/Globulin Ratio 1.4 (1.1-2.2); Alkaline Phosphatase 62 Units/L (34-104); Aspartate Amino Transferase 15 Units/L (13-39); BUN/Creatinine Ratio 15 (6-26); Bilirubin,Total 1.9 mg/dL (0.3-1.0); Blood Urea Nitrogen 18 mg/dL (6-20); Calcium 8.9 mg/dL (8.6-10.3); Carbon Dioxide 25 mEq/L (23-29); Chloride 108 mEq/L (98-107); Chol/HDL Ratio 5.3 (0-4.9); Cholesterol 106 mg/dL (< 200); Globulin 2.6 g/dL (2.4-3.5); Glucose 92 mg/dL (70-105); HDL Cholesterol 20 mg/dL (40-59); LDL Cholesterol,Calculated 66 mg/dL (0-99); Magnesium 2.1 mg/dL (1.6-2.6); Osmolality,Calculated 296 (280-300); Potassium 3.7 mEq/L (3.5-5.1); Sodium 142 mEq/L (136-145); Total Protein 6.3 g/dL (6.4-8.9); Triglycerides 101 mg/dL (< 150); eGFR For Non-African Americans > 60 (> 60)
[2018-01-03 07:02] LABS: Thyroid Stimulating Hormone 1.295 mcIU/mL (0.340-5.600)
[2018-01-03 09:00] LABS: Estimated Average Glucose 108 mg/dl; Hemoglobin A1C 5.4 %
--- NOTE | 2018-01-03 09:46 | Discharge Summary ---
- NOTES TO OUTPATIENT PROVIDER Notes to Outpatient Provider: Patient was diagnosed with new onset biventricular heart failure. Left heart catheter showed 25% stenosis in the left circumflex and 65% stenosis in the RCA. Likely due to nonischemic cardiomyopathy possibly attributed to EtOHuse. He was diuresed with IV Lasix 40 twice a day with symptomatically improvement. Due to his borderline blood pressure, both Rojas inhibitors and beta jana were not started. He is discharged on PO lasix 20mg and follow up BMP in a week with cardiology follow up. 6 minute walk test was done prior to the discharge and he did not have any O2 needs. Orders not resulted at time of discharge: Pending orders 01/02/18 06:00 ECG 12 lead ECG [ECG] AM 0600 Date of Encounter: 01/03/18 Time of Encounter: 08:30 - Discharge Diagnosis (1) Congestive heart failure Priority: Primary Status: Acute Qualifiers: Heart failure type: systolic Heart failure chronicity: acute Qualified Code(s): I50.21 - Acute systolic (congestive) heart failure (2) Dilated cardiomyopathy Priority: Secondary Status: Acute (3) COPD (chronic obstructive pulmonary disease) Priority: Secondary Status: Chronic Qualifiers: COPD type: emphysema Emphysema type: panlobular Qualified Code(s): J43.1 - Panlobular emphysema (4) DVT prophylaxis Priority: Secondary Status: Acute Hospital course: Mr. Wiggins is a 57 year old male with past history of heavy alcohol use, COPD, hypertension, presented to the ED with progressive shortness of breath. He had outpatient echo done a few days prior to presentation which showed EF of 25% and moderately dilated LV with global systolic dysfunction. RV was also mildly dilated and hypokinetic. Moderate HTN. He was diuresed with IV Lasix 40 mg twice a day with symptomatic improvement. Left heart catheterization did not show any critical stenosis requiring PCI. His cardiomyopathy is likely due to nonischemic cause and he will be further evaluated by cardiology as an outpatient. Due to his lowish BP, he will only go home on PO lasix 20mg but without Rojas inhibitors or beta jana. He will need BMP in a week. 6 minute walk test was done prior to the discharge and he did not have any O2 needs. - Time Spent with Patient Total time spent providing and/or coordinating discharge services: Greater than 30 minutes - Discharge Medications Prescriptions: Furosemide [Lasix] 20 mg PO DAILY #30 tablet Home Medications: Aspirin 81 mg PO DAILY tab.chew 01/03/18 [Rx] Atorvastatin [Lipitor] 10 mg PO HS tablet 01/03/18 [Rx] Furosemide [Lasix] 20 mg PO DAILY #30 tablet 01/03/18 [Rx] Allergies/Adverse Reactions: 3 Allergy/AdvReac Type Severity Reaction Status Date / Time No Known Allergies Allergy Verified 01/02/18 08:30 Date of admission: 01/02/18 00:32 Primary care physician: Richy Mc Consults: 01/02/18 08:12 Consult to Cardiology [CONS] Routine Comment: Consulting Provider: [facility] Reason for Consult: new onset CHF Time Notified: 08:15 Call Completed: Yes - Constitutional Vitals: Temp Pulse Resp BP Pulse Ox 97.9 F 89 16 116/83 94 01/03/18 09:21 01/03/18 09:21 01/03/18 09:21 01/03/18 09:21 01/03/18 09:21 General appearance: Present: cooperative, mild distress (anxious), A&O X 3, pleasant, answers questions appropriately Exam: General: Alert and oriented, not in acute distress. Cardiovascular:Normal S1 & S2, No JVD. Pulse regular. Lungs: Bibasilar crackles Abdomen:Soft, non-tender, no rigidity. Extremities:No deformity or swelling Skin:Normal color, no rash, no lesions. - Patient Status Disposition: Home, Self-Care Condition: Good Overall status at discharge: patient is progressing back to baseline - Discharge Instructions Instructions: Heart Failure (DC), Pacemaker (DC), Chronic Obstructive Pulmonary Disease (DC) Follow Up With: Richy Mc DO [Primary Care Provider] - (patient will call an appoint per [place] office...) Emanuel Baires Jr, MD [Family Provider] - - Diet and Activity Activity: resume usual activities as tolerated Diet: low fat, low cholesterol
--- NOTE | 2018-01-03 09:47 | Cardiology Progress Note ---
Date of Encounter: 01/03/18 Time of Encounter: 08:30 Assessment and Plan (1) Congestive heart failure Current Visit: Yes Status: Acute Per cardiology: -New onset, s/p LHC yesterday with mild-moderate CAD. Non-ischemic cardiomyopathy possible related to ETOH abuse. -ECHO - EF 25%, dilated RV and LV, severe global LV systolic dysfunction, moderate pulmonary HTN -Currently euvolemic on exam. -Net negative 1L. -CHF education reviewed with patient at length, patient educated when to call cardiology. -Of note, BP 90-110s systolic. -Will start toprol 12.5mg daily. Consider addition of suzie/arb in outpatient setting pending BP assessment. -Will start oral lasix. -Will repeat TTE in 3 months in outpatient setting. -Educated patient on importance of abstaining from alcohol. -Cardiology will sign off and will arrange outpatient follow up. Qualifiers: Heart failure type: systolic Heart failure chronicity: acute Qualified Code(s): I50.21 - Acute systolic (congestive) heart failure (2) CAD (coronary artery disease) Current Visit: Yes Status: Acute Per cardiology: -LHC yesterday with mild-moderate CAD. -Denies chest pain. -On asa, statin, BB. -right groin site management education reviewed with patient. -Risk factor modification reviewed with patient. Qualifiers: Coronary Disease-Associated Artery/Lesion type: elim ira artery [place] vs. transplanted heart: elim ira heart Associated angina: without angina Qualified Code(s): I25.10 - Atherosclerotic heart disease of elim ira coronary artery without angina pectoris (3) Tobacco abuse Current Visit: Yes Status: Chronic Per cardiology: Known tobacco abuse. -Smoking cessation education reviewed with patient. Discussion w patient/family: The assessment and plan as outlined above was discussed with the patient who expressed understanding and agreement. All questions were answered. Thank you for involving us in the care of your patient. Please call with any questions. Discussed and reviewed with . RISK FACTORS: STOP SMOKING: If you smoke, STOP. Smoking or tobacco use significantly increases your risk of heart disease because nicotine causes the arteries to narrow or constrict. It also causes fats to stick to the artery. Your chances of having a heart attack are greatly increased if you continue to smoke. For more information, call the education line for smoking cessation 9-719-VNRLBHA EAT A LOW FAT/CHOLESTEROL/SODIUM DIET: This diet may help reduce your chances of having a heart attack. LIFTING: Avoid lifting anything more than 10 pounds for 5-7 days Prior to straining, laughing, sneezing and/or coughing, apply manual pressure directly over insertion site. ACTIVITY: You may walk or climb stairs as tolerated You can resume sexual activity as tolerated In general, you are encouraged to engage in a minimum of 30 minutes or more of moderate intensity physical activity, such as brisk walking, daily or at least 3 -4 times weekly BATHING Do not submerge the site into water (bath tub, hot tub, swimming pool) for 1 week. This can be a source for infection into the blood stream. You may shower after 24 hours SITE CARE: After 24 hours, you may remove the dressing and leave the site open to air. Keep the site clean and dry. Clean gently and pat dry. You can expect bruising and tenderness that gradually resolve within a week or two. Return to work as instructed per your physician Resume driving as instructed per physician Keep all scheduled follow up appointments Resume medications as instructed IMPORTANT: If prescribed a Platelet Aggregation Inhibitor such as, Plavix, Brilinta or Effient: Duration of therapy is minimum one year These medications are often used in combination with Aspirin in prevention of future heart attacks Never discontinue unless consult with your Assistant Property Manager STROKE (CVA) Risk factors for a stroke are: Age, cigarette smoking, diabetes, excessive alcohol consumption, family history, high blood pressure, overweight, physical inactivity, prior stroke, heart attack, diagnosis of carotid artery stenosis or other artery disease. Warning signs: Sudden numbness or weakness of the face, arm or leg; especially on one side of the body, sudden confusion, trouble speaking or understanding, sudden trouble seeing in one or both eyes, sudden trouble walking, dizziness, loss of balance or coordination, sudden severe headache with no cause. Call 911 or go to the Emergency Room. CONGESTIVE HEART FAILURE: If you have been diagnosed with Congestive Heart Failure (CHF) and your symptoms return, make an appointment with your physician Weigh yourself daily. Notify your physician if you have a weight gain of two or more pounds in one day or five or more pounds in one week. If you experience any difficulty breathing, please call 911 BLEEDING: Although the risk of bleeding is minimal, it can happen. If you have any bleeding from the site, apply firm pressure above the puncture site for 10-15 minutes. If the bleeding does not stop, continue manual pressure and call 911 Contact your physician if: You develop a fever greater than 101 degrees Fahrenheit Your site becomes reddened or has any drainage You have an increase in pain or burning at the site or if a large knot forms at the site. If you experience chest pain, shortness of breath, dizziness, or extreme tiredness, stop the activity and rest. Please notify your physicians office if you experience any of these symptoms and they are not relieved by rest please call 911! Subjective Principal diagnosis: CHF Interval history: Patient is s/p LHC yesterday. Reports breathing is improved. Denies chest pain. Denies issues walking. Objective Vital Signs, Last 4 Hours Temp Pulse Resp BP Pulse Ox 01/03/18 09:21 97.9 F 89 16 116/83 94 General: Conversant, No Apparent Distress HEENT: Atraumatic, Normocephaly, Mucus Membranes Moist Neck: No JVD, Normal carotid pulses Cardiac: Reg Rate and Rhythm, Normal S1 and S2, No Murmur Lungs: Normal Breath Sounds, No Wheeze, Rales, Rhonchi Neuro: Alert and responsive, No focal deficits noted Abdomen: Soft, Non-Tender Skin: No rashes noted on visualized skin Musculoskeletal: No Chest Wall Tenderness Extremities: No Clubbing, No Cyanosis, No Edema, Normal Pulses Results 01/03/18 05:45 01/03/18 05:45 Lab Results Active Medications Acetaminophen (Tylenol) 650 mg PO Q6HR PRN PRN Reason: Mild Pain/Fever Stop: 07/04/18 04:27 Albuterol/Ipratropium (Duoneb) 3 ml IH [id number] PRN PRN Reason: Shortness Of Breath/Wheezing Stop: 07/04/18 06:01 Aspirin (Aspirin) 81 mg PO DAILY MADELAINE Stop: 07/04/18 09:01 Last Admin: 01/02/18 08:30 Dose: 81 mg Atorvastatin Calcium (Lipitor) 10 mg PO HS MADELAINE Stop: 07/04/18 21:01 Last Admin: 01/02/18 20:55 Dose: 10 mg Heparin Sodium (Porcine) (Heparin) 5,000 unit SQ Q12HR MADELAINE Stop: 07/04/18 06:01 Last Admin: 01/03/18 06:44 Dose: Not Given Naloxone HCl (Narcan) 0.4 mg IVP Q2MIN PRN PRN Reason: SEE COMMENTS Stop: 07/04/18 04:27 Nitroglycerin (Nitroglycerin) 0.4 mg SL Q5MIN PRN PRN Reason: Shortness Of Breath Stop: 07/03/18 22:53 Last Admin: 01/02/18 00:13 Dose: 0.4 mg Tramadol HCl (Ultram) 50 mg PO Q6HR PRN PRN Reason: Moderate Pain Stop: 07/04/18 04:27 Laboratory Tests 01/01/18 01/02/18 01/03/18 23:00 05:27 05:45 Hgb 15.2 Creatinine Troponin I 0.07 H* 0.06 H* 01/03/18 05:45 Hgb Creatinine 1.19 Troponin I - Imaging and Cardiology Chest Xray: report reviewed Echo: report reviewed Cardiac cath: report reviewed - EKG Interpretation EKG results cardiology: other (Telemetry reviewed with average HR previous 12 hours noted to be 99, SR. PVCs and PACs noted.) Consult Discharge Plan - Plan Instructions: Heart Failure (DC), Pacemaker (DC), Chronic Obstructive Pulmonary Disease (DC) Referrals: Richy Mc DO [Primary Care Provider] - (patient will call an appoint per [place] office...) Emanuel Baires Jr, MD [Family Provider] - Prescriptions: Furosemide [Lasix] 20 mg PO DAILY #30 tablet
[2018-01-03] MEDS: Aspirin 81 MG TAB.CHEW PO SCH (09:48)
[2018-01-03] MEDS ORDERED: Furosemide 40 MG TABLET PO SCH (09:49)
[2018-01-03] MEDS ORDERED: Metoprolol XL (24 HR) Succ 25 MG TAB.ER.24H PO SCH (10:00)
[2018-01-03 11:35] VITALS: BP 115/78
--- NOTE | 2018-01-04 07:52 | Electrocardiograph Report ---
[place] [id number] Test Date: 2018-01-01 Pat Name: Lewis Wiggins Department: EXAM16 Room: 2A34 Gender: M Road Roller Operator: : 1960 Requested By: Alan Miller Order Number: [id number] Reading MD: Mojgan Franco Measurements Intervals [place] Rate: 117 P: 60 NE: 118 QRS: 69 QRSD: 94 T: QT: 346 QTc: 483 Interpretive Statements Sinus tachycardia Probable left atrial enlargement Left ventricular hypertrophy Nonspecific T abnormalities, lateral leads Anterior ST elevation, probably due to LVH Borderline prolonged QT interval Electronically Signed On 01-04-2018 7:50:28 EDT by Mojgan Franco
--- NOTE | 2018-01-04 07:54 | Electrocardiograph Report ---
[address] [address] Test Date: 2018-01-01 Pat Name: Lewis Wiggins Department: EXAM16 Room: 2A34 Gender: M Guide Excursion: : 1960 Requested By: Alan Miller Order Number: [id number] Reading MD: Mojgan Franco Measurements Intervals [place] Rate: 108 P: 58 RI: 126 QRS: 69 QRSD: 95 T: 118 QT: 350 QTc: 470 Interpretive Statements Sinus tachycardia Ventricular trigeminy Probable left atrial enlargement Left ventricular hypertrophy Nonspecific T abnormalities, lateral leads Electronically Signed On 01-04-2018 7:52:59 EDT by Mojgan Franco
== END 2018-01-03 12:21 | disposition home or self-care (01) ==
LOC: 2ANU 20:51 → EMEROOARM 20:51 → SUATTDRO 01-02 00:32 → 2ANU 01-02 00:53
PROVIDERS: ADMIT Family Medicine; ATTEND Internal Medicine

== ENCOUNTER 2018-02-20 14:04 | Inpatient (IN) ==
[2018-02-20 14:51] LABS: Basophils % 0.4 %; Eosinophils # 0.1 K/mcL (0.0-0.6); Eosinophils % 0.6 %; Hematocrit 45.8 % (37.5-50.1); Hemoglobin 14.6 g/dL (12.9-16.9); Immature Granulocytes % 0.2 % (0-4); Lymphocytes # 0.7 K/mcL (0.6-4.6); Lymphocytes % 6.7 %; Mean Corpuscular HGB Conc 31.9 g/dL (31.6-35.5); Mean Corpuscular Hemoglobin 29.9 pg (28.0-33.3); Mean Corpuscular Volume 93.7 fL (83.0-100.0); Mean Platelet Volume 12.2 fL (9.4-12.4); Monocytes # 0.4 K/mcL (0.0-1.3); Monocytes % 3.5 %; Neutrophils # 9.5 K/mcL (1.6-8.9); Platelet Count 216 K/mcL (140-400); Red Blood Count 4.89 M/mcL (4.19-5.50); Red Cell Distribution Width 14.6 % (11.5-14.5); Segmented Neutrophils % 88.6 %
--- NOTE | 2018-02-20 15:03 | Emergency Department Note ---
Disposition Clinical Impression: Congestive heart failure Qualifiers: Heart failure type: biventricular Qualified Code(s): I50.82 - Biventricular heart failure Disposition: Admitted As Inpatient Time of Disposition: 17:40 General Adult HPI - General Chief complaint: ED Shortness of Breath/Dyspnea Stated complaint: SOB, Swelling Time Seen by Provider: 02/20/18 14:16 Source: patient Mode of arrival: ambulatory Limitations: no limitations Nursing Notes Reviewed: Yes Vital Signs Reviewed: Yes - History of Present Illness HPI Narrative: He is 57 year old man with pmh significant for CHF EF 25% 12/30/18, CAD s/p cath , and COPD who presents to ED with increasing SOB for last 5-6 months. He was admitted in Dec and found to have LVEF 25% and dc home with lasix. His breathing had improved and when he saw his PCP in followup he was told to stop the lasix and cancel his cardiology followup as stopping alcohol use would be more beneficial. He said he no longer drinks alcohol and at the time was drinking 6-8 beers on the weekend. Over the past 1-2 weeks he has become more dyspnic on exertion, decreasing exercise tolerance to 25ft, orthopnea, dizzy/ lightheaded with standing, increasing LE edema along with "abdominal bloating", and nausea. Exercise tolerance 3 weeks ago he was able to mow his lawn without symptoms. He denies chest pain, blurry vision, diplopia, presyncope/syncope, falls. He addtionally states he has occasional palpitations and said he has "afib" but has never been diagnosed, was having episodes during previous admission in Dec but no mention of afib in past notes. Pt Subjective Complaint: sob, LE edema Onset (ago): week(s) Location: chest Pain Scale: 0 Consistency: Worsening Improves with: rest Worsens with: movement Associated symptoms: Reports: other (nausea) Treatments Prior to Arrival: none - Related Data Previous Rx's Medication Instructions Recorded Aspirin Enteric Coated [Aspirin EC] 81 mg PO DAILY #30 tablet. 01/03/18 Atorvastatin [Lipitor] 40 mg PO HS #30 tablet 01/03/18 Furosemide [Lasix] 20 mg PO DAILY #30 tablet 01/03/18 Allergies Allergy/AdvReac Type Severity Reaction Status Date / Time No Known Allergies Allergy Verified 01/02/18 08:30 All systems ED: reviewed and negative except as stated. Constitutional: Denies: fever, chills, weight change Cardiovascular: Reports: palpitations, dyspnea on exertion, orthopnea, edema. Denies: chest pain, syncope, paroxysmal nocturnal dyspnea Respiratory: Reports: dyspnea. Denies: cough Gastrointestinal: Reports: nausea, other (bloating). Denies: abdominal pain, vomiting Past Medical History - Past Medical History Medical history: Reports: COPD, hypertension Surgical history: Reports: no surgical history (except dental) Psychiatric history: Reports: no psych history - Social History Smoking Status: Former smoker Smokeless Tobacco Status: No Alcohol use: Reports: occasionally Drug use: Reports: marijuana Physical Exam - General Limitations: no limitations General appearance: alert, in no apparent distress - Head Head exam: atraumatic, normocephalic, normal inspection - Eye Eye exam: Present: scleral icterus - ENT ENT exam: mucous membranes moist - Neck Neck exam: Present: normal inspection, trachea midline - Chest Chest inspection: Present: normal inspection, symmetric chest wall rise - Respiratory Respiratory exam: Present: other (rhonchi bibasilar ) - Cardiovascular Cardiovascular exam: Present: tachycardia, normal heart sounds, +S1, +S2 - Abdominal Exam Abdominal exam: Present: soft, Non-Tender. Absent: distention - Extremities Exam Extremities exam: Present: normal capillary refill, pedal edema (2+ bilateral ) - Neurological Exam Neurological exam: Present: alert - Psychiatric Psychiatric exam: Present: normal affect - Skin Skin exam: Present: warm, dry, intact, normal color Course Course Narrative: Progressing MAYNARD, LE edema, and decreasing exercise tolerance with EF 25% with moderate LV systolic dysfunction on ECHO 12/30/18. As hx continued he was becoming dyspnic with conversation and increasing tachycardia. Will start lasix as likely CHF exacerbation 2/2 no medication use. Consider admission if symptoms not improving with diuresis. ECG 1425: sinus tach, hr 111, pr 130, qt 361, LA enlargement, non specific T wave abnormalities diffusely, no afib, or acute st elevation/depression. 1540: BNP 2540, Cr 1.22, CXR Mild interstitial prominence which may relate to history of COPD. No consolidation, effusion or pneumothorax. The cardiomediastinal silhouette is stable. The osseous structures are without acute process. 1626: Said he was experiencing "afib" again, repeat ECG during episode sinus tach, hr 109, pr 128, qt 357, LA enlargement, non specific T wave abnormalities diffusely, no afib, acute st elevation/depression. Says he is breathing better minimally. Still dyspnic with talking. Will ambulate him and evaluate symptoms during. Likely admit for continued diuresis if symptomatic with ambulation. 1715: Was ambulated and after <50 ft was sob, dizzy, and tachycardic. O2 sat was 96% at this time. Will admit to hospitalist service for continued diuresis and Dr Marin accepted. Vital Signs Temperature 97.7 F 02/20/18 14:09 Pulse Rate 118 02/20/18 14:09 Respiratory Rate 22 02/20/18 14:09 Blood Pressure 123/87 02/20/18 14:09 O2 Sat by Pulse Oximetry 98 02/20/18 14:09 Temperature 97.7 F 02/20/18 14:33 Pulse Rate 111 02/20/18 15:58 Respiratory Rate 26 02/20/18 15:58 Blood Pressure 121/95 02/20/18 15:58 O2 Sat by Pulse Oximetry 96 02/20/18 15:58 Oxygen Delivery Oxygen Delivery Room Air Medical Decision Making - Lab Data Result diagrams: 02/20/18 14:29 02/20/18 14:29 Lab Results 02/20/18 02/20/18 02/20/18 Range/Units 14:29 14:29 14:29 WBC 10.7 (4.3-11.1) K/mcL RBC 4.89 (4.19-5.50) M/mcL Hgb 14.6 (12.9-16.9) g/dL Hct 45.8 (37.5-50.1) % MCV 93.7 (83.0-100.0) fL MCH 29.9 (28.0-33.3) pg MCHC 31.9 (31.6-35.5) g/dL RDW 14.6 H (11.5-14.5) % Plt Count 216 (140-400) K/mcL MPV 12.2 (9.4-12.4) fL Immature Gran % 0.2 (0-4) % Seg Neutrophils % 88.6 % Lymphocytes % 6.7 % Monocytes % 3.5 % Eosinophils % 0.6 % Basophils % 0.4 % Neutrophils # 9.5 H (1.6-8.9) K/mcL Lymphocytes # 0.7 (0.6-4.6) K/mcL Monocytes # 0.4 (0.0-1.3) K/mcL Eosinophils # 0.1 (0.0-0.6) K/mcL Basophils # 0.0 (0.0-0.2) K/mcL Sodium 139 (136-145) mEq/L Potassium 4.3 (3.5-5.1) mEq/L Chloride 107 (98-107) mEq/L Carbon Dioxide 19 L (23-29) mEq/L BUN 24 H (6-20) mg/dL Creatinine 1.22 (0.70-1.30) mg/dL Est GFR ( Amer) > 60 (> 60) Est GFR (Non-Af Amer) > 60 (> 60) BUN/Creatinine Ratio 20 (6-26) Glucose 116 H (70-105) mg/dL Calculated Osmolality 293 (280-300) Lactic Acid 2.0 (0.5-2.2) mmol/L Calcium 9.4 (8.6-10.3) mg/dL Total Bilirubin 2.4 H (0.3-1.0) mg/dL Direct Bilirubin 0.5 H (0.0-0.2) mg/dL Indirect Bilirubin 1.9 H (0.0-1.2) mg/dL AST 31 (13-39) Units/L ALT 46 (7-52) Units/L Alkaline Phosphatase 85 (34-104) Units/L Troponin I 0.03 (< 0.04) ng/mL B-Natriuretic Peptide (Less than 100) pg/mL Serum Total Protein 6.8 (6.4-8.9) g/dL Albumin 4.1 (3.5-5.7) g/dL Globulin 2.7 (2.4-3.5) g/dL Albumin/Globulin Ratio 1.5 (1.1-2.2) 02/20/18 Range/Units 14:29 WBC (4.3-11.1) K/mcL RBC (4.19-5.50) M/mcL Hgb (12.9-16.9) g/dL Hct (37.5-50.1) % MCV (83.0-100.0) fL MCH (28.0-33.3) pg MCHC (31.6-35.5) g/dL RDW (11.5-14.5) % Plt Count (140-400) K/mcL MPV (9.4-12.4) fL Immature Gran % (0-4) % Seg Neutrophils % % Lymphocytes % % Monocytes % % Eosinophils % % Basophils % % Neutrophils # (1.6-8.9) K/mcL Lymphocytes # (0.6-4.6) K/mcL Monocytes # (0.0-1.3) K/mcL Eosinophils # (0.0-0.6) K/mcL Basophils # (0.0-0.2) K/mcL Sodium (136-145) mEq/L Potassium (3.5-5.1) mEq/L Chloride (98-107) mEq/L Carbon Dioxide (23-29) mEq/L BUN (6-20) mg/dL Creatinine (0.70-1.30) mg/dL Est GFR ( Amer) (> 60) Est GFR (Non-Af Amer) (> 60) BUN/Creatinine Ratio (6-26) Glucose (70-105) mg/dL Calculated Osmolality (280-300) Lactic Acid (0.5-2.2) mmol/L Calcium (8.6-10.3) mg/dL Total Bilirubin (0.3-1.0) mg/dL Direct Bilirubin (0.0-0.2) mg/dL Indirect Bilirubin (0.0-1.2) mg/dL AST (13-39) Units/L ALT (7-52) Units/L Alkaline Phosphatase (34-104) Units/L Troponin I (< 0.04) ng/mL B-Natriuretic Peptide 2458 H (Less than 100) pg/mL Serum Total Protein (6.4-8.9) g/dL Albumin (3.5-5.7) g/dL Globulin (2.4-3.5) g/dL Albumin/Globulin Ratio (1.1-2.2) Attestation Statement - Attestation Attestation: I, Tomas Waldrop, examined this patient and my medical decision-making was reviewed with the ELECTRICAL SIGN SERVICER/PA/Advanced Practice Nurse/Resident Physician. I agree with the documented findings, disposition and treatment plan as described except to the extent set forth below. 57-year-old male presents emergency Department with concerns of increased shortness of breath and swelling of the bilateral lower extremities. Patient has a history of congestive heart failure with 25% ejection fraction. He was on Lasix and had started to improve however his primary care provider took him off the medication. Patient has then developed increased orthopnea, dyspnea with exertion and swelling bilateral lower extremities. Patient has a chest x- ray which shows vascular congestion has an elevated BNP. His symptoms are consistent with acute congestive heart failure. He will be restarted on Lasix and admitted to the hospital for further evaluation. He has dyspnea with conversation on her evaluation he is tachycardic. Patient comfortable with plan of action.
[2018-02-20 15:07] LABS: Troponin I 0.03 ng/mL (< 0.04)
[2018-02-20 15:26] LABS: Alanine Aminotransferase 46 Units/L (7-52); Albumin 4.1 g/dL (3.5-5.7); Albumin/Globulin Ratio 1.5 (1.1-2.2); Alkaline Phosphatase 85 Units/L (34-104); Aspartate Amino Transferase 31 Units/L (13-39); BUN/Creatinine Ratio 20 (6-26); Bilirubin,Direct 0.5 mg/dL (0.0-0.2); Bilirubin,Indirect 1.9 mg/dL (0.0-1.2); Bilirubin,Total 2.4 mg/dL (0.3-1.0); Blood Urea Nitrogen 24 mg/dL (6-20); Calcium 9.4 mg/dL (8.6-10.3); Carbon Dioxide 19 mEq/L (23-29); Chloride 107 mEq/L (98-107); Globulin 2.7 g/dL (2.4-3.5); Glucose 116 mg/dL (70-105); Osmolality,Calculated 293 (280-300); Potassium 4.3 mEq/L (3.5-5.1); Sodium 139 mEq/L (136-145); Total Protein 6.8 g/dL (6.4-8.9); eGFR For Non-African Americans > 60 (> 60)
[2018-02-20] MEDS ORDERED: Furosemide 40 MG/4 ML VIAL IVP ONE (15:35)
[2018-02-20] MEDS ORDERED: Naloxone 0.4 MG/ML INJ IVP PRN (19:26)
[2018-02-20] MEDS ORDERED: *HR* LORazepam 2 MG/ML VIAL IVP ONE (22:56)
--- NOTE | 2018-02-20 23:14 | Internal Med History&Physical ---
Date of Encounter: 02/20/18 Time of Encounter: 19:00 Internal Medicine - H&P: HPI Chief complaint: Difficulty breathing Admitted From: Home Plans for Post Hospital Care: Home History of present illness: The patient is a 57-year-old man who has had long-standing history of alcohol drinking. It was in December of this year when he was diagnosed with dilated cardiomyopathy, likely secondary to alcohol use. His echocardiogram from showed left ventricular ejection fraction of 25%. Subsequently, he was started on Lasix. He was taking this medication off and on for the next diffuse last several weeks. Eventually, he quit using it, as he felt like it was not doing any good for him. He has been developing progressing dyspnea on exertion in the last 1-2 weeks. It is associated with nocturnal dyspnea developing in the last few days. He denies chest pain. He denies coughing and wheezing. 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 He is not using oxygen for that. The patient quit tobacco and alcohol use in the end of December of this year, when he learned about his severe heart disease. He used to smoke average one pack per day; started as a teenager. He used to drink a 6-8 beers per day for over 20 years. I checked him in the emergency room. He feels better after he has received 1 dose of IV Lasix. 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 REVIEW OF SYSTEMS: All 14 organ systems were reviewed by me with the patient. Positive and pertinent negative findings are listed above. The rest of organ systems is negative. PHYSICAL EXAM: Skin: Free of rash and discoloration. Eyes: Sclera is white. There is no discharge from eyes. ENMT: Oral/pharyngeal mucosa is normal in appearance. There is no discharge from nose or ears. Respiratory: Normal breath sounds with no crackles and wheezes bilaterally. CV: Heart is regular with no gallop or murmur. He has mild swelling around his ankles and in his feet. GI: Abdomen is flat and soft with no palpable mass or visceromegaly. : There is no tenderness in patient's flanks bilaterally. Neuro exam: He has good strength in upper and lower extremities. He has normal eye movements. Psychiatric: He has normal affect. His thought process is appropriate to the situation. ADDITIONAL DATA: His chest x-ray done in the emergency room showed mild interstitial prominence with no consolidation, effusion or pneumothorax. He says CBC is normal. He has normal sodium and potassium. Creatinine is 1.22. Random glucose is 116. BNP is around 2500. His liver function tests are showing elevated total bilirubin of 2.4 with indirect bilirubin of 1.9. Alk phos, AST and ALT are normal. A/P: Acute on chronic systolic heart failure secondary to dilated alcoholic cardiomyopathy. Better after giving him 1 dose of IV Lasix. I will continue Lasix at 40 mg orally every morning. I will start him on carvedilol at 3.125 mg by mouth twice a day. The patient is not hypoxic. COPD. It is mostly emphysema. I cannot hear any wheezes today. We will use nebulizer treatments with DuoNeb and supplemental oxygen, if needed. I praised this patient for quitting tobacco and alcohol in December of this year. Past Med Surg Social Fam HX - Past Medical History Medical history: COPD, hypertension Psychiatric history: no psych history - Past Surgical History Surgical History: no surgical history Additional surgical history: dental - Social History Smoking Status: Former smoker Smokeless Tobacco Status: No Alcohol use: occasionally Drug use: marijuana - Family History Mother Age: 80 Living Status: Still Living Hx Family Cardiac Disorders: No Father Living Status: Age at : 77 Cause of : lung cancer Hx Family Cardiac Disorders: No Sister Living Status: Age at : 70 Cause of : stroke Brother Living Status: Age at : 78 Internal Medicine - H&P: Meds Aspirin Enteric Coated [Aspirin EC] 81 mg PO DAILY #30 tablet. 01/03/18 [Rx] 3 Allergy/AdvReac Type Severity Reaction Status Date / Time No Known Allergies Allergy Verified 02/20/18 18:56 - Constitutional Vitals: Temp Pulse Resp BP Pulse Ox 97.5 F L 111 18 121/84 92 02/20/18 19:21 02/20/18 19:21 02/20/18 19:21 02/20/18 19:21 02/20/18 19:56 General appearance: Present: A&O X 3, no acute distress, answers questions appropriately Exam: XX Internal Med - H&P Results - Labs CBC & Chem 7: 02/20/18 14:29 02/20/18 14:29 - Time Spent With Patient Total time spent is greater than 50% in coordination of care (as documented) at patient's floor/unit and/or counseling patient: - VTE Reasons for not Prescribing Prophylaxis: Treatment not Indicated - Low risk for VTE Deep Vein Thrombosis/Pulmonary Embolism Present on Admission: No
[2018-02-20] MEDS: Melatonin 3 MG TABLET PO PRN (23:33)
[2018-02-20] MEDS: Ondansetron 4 MG/2 ML VIAL IVP PRN (23:33)
[2018-02-21 05:31] LABS: Albumin 3.5 g/dL (3.5-5.7); Albumin/Globulin Ratio 1.7 (1.1-2.2); Bilirubin,Direct 0.5 mg/dL (0.0-0.2); Bilirubin,Indirect 2.1 mg/dL (0.0-1.2); Bilirubin,Total 2.6 mg/dL (0.3-1.0); Globulin 2.1 g/dL (2.4-3.5); Magnesium 1.9 mg/dL (1.6-2.6); Total Protein 5.6 g/dL (6.4-8.9)
[2018-02-21] MEDS: Furosemide 40 MG TABLET PO SCH (08:27)
[2018-02-21] MEDS: Aspirin Enteric Coated 81 MG Tablet PO SCH (08:27)
[2018-02-21] MEDS ORDERED: *HR* LORazepam 2 MG/ML VIAL IVP PRN ×3 (12:10)
[2018-02-21] MEDS: Folic Acid 1 MG TABLET PO SCH (12:40)
[2018-02-21] MEDS: Thiamine (B-1) 100 MG TABLET PO SCH (12:41)
[2018-02-21] MEDS: Vitamin B Complex/Vit C/Vit E 1 EACH TABLET PO SCH (12:41)
--- NOTE | 2018-02-21 13:12 | Internal Med Progress Note ---
Hospitalist Progress Note - Encounter Date of Encounter: 02/21/18 Time of Encounter: 13:05 - Subjective Interval History: Seen and examined at bedside today. Reporting abdominal pain, nausea, abdominal distention and epigastric tenderness to palpation. - Exam Vitals: Temp Pulse Resp BP Pulse Ox 97.5 F L 102 18 116/84 98 02/21/18 11:17 02/21/18 11:17 02/21/18 11:17 02/21/18 11:17 02/21/18 11:17 Exam: PHYSICAL EXAMINATION: GENERAL: The patient is an ill appearing male in mild distress due to abdominal discomfort. He is alert and oriented x3. HEENT: Head is normocephalic and atraumatic. Extraocular muscles are intact. Pupils are equal, round, and reactive to light and accommodation. Positive for scleral icterus. Nares appeared normal. Mouth is well hydrated and without lesions. Mucous membranes are moist. Posterior pharynx clear of any exudate or lesions. NECK: Supple. No carotid bruits. No lymphadenopathy or thyromegaly. LUNGS: Clear to auscultation. HEART: Regular rate and rhythm, S1, S2 without murmur rubs or gallops. ABDOMEN: Soft, nontender. NABS Per palpation and percussive maneuvers appears to have hepatomegaly. Abdomen distended and tympanic. EXTREMITIES: Without any cyanosis, clubbing, rash, lesions or edema. NEUROLOGIC: Cranial nerves II through XII are grossly intact. SKIN: No ulceration or induration present. - Assessment and Plan (1) Congestive heart failure Current Visit: Yes Status: Acute Assessment and Plan: mild-moderate CAD per [facility] in 12/24 revealing moderate one vessel CAD Systolic CHF with global HK EF 25% Presented with dyspnea, worse with exertion, decreased exercise tolerance, orthopnea, dizziness/lightheadedness, no abdominal distention, nausea and lower extremity edema BNP elevated on admission-2540 02/21--has been receiving IV diuretics. Continues to have dyspnea worse with exertion and mild conversational dyspnea. BLE pitting edema is improving. Abdominal distention persists, mixed picture with CHF and concerns for ascites secondary to cirrhosis with alcoholism. Continue with diuretics at this time, strict I's and O's, daily weights. Weights are stable. Fluid balance -130 mL. Nasal cannula for respiratory support as needed titrate to maintain SPO2 greater than 92%. Coreg dose increased to 6.25 mg twice a day Will need a repeat TTE in 3 months in outpatient setting (2) COPD (chronic obstructive pulmonary disease) Current Visit: No Status: Chronic Assessment and Plan: Per history, not in acute exacerbation (3) Alcoholic cirrhosis of liver with ascites Current Visit: Yes Status: Suspected Assessment and Plan: Long-standing history of alcoholism reporting drinking 6-8 drinks per day for the last 20 years On presentation was noted to have altered liver function; total bilirubin 2.6, direct bilirubin 0.5, indirect bilirubin 2.1; AST 34, ALT 48, alkaline phosphatase 72 Scleral icterus present, patient appears jaundiced. Has abdominal distention, abdomen is tympanic to percussion, per my assessment appears to have some hepatomegaly -Obtain abdominal ultrasound of liver or pancreas and gallbladder now, repeat hepatic panel in the morning, check hepatitis panel now (4) Abnormal liver function Current Visit: Yes Status: Acute Assessment and Plan: as above (5) CAD (coronary artery disease) Current Visit: No Status: Acute Assessment and Plan: per hx Continue ASA, increase Coreg to 6.25 mg daily due to tachycardia, continue Lasix Currently chest pain-free Reporting epigastric and B/L upper quadrant pain described as a "pinching sensation" He reports he has been experiencing this intermittently throughout the last month (6) Dilated cardiomyopathy Current Visit: No Status: Acute Assessment and Plan: As above (7) Alcohol abuse Current Visit: Yes Status: Acute Assessment and Plan: 20 year history of alcohol abuse reporting 6-8 drinks daily Reports that he has not had a drink since late December Does not appear to have S/SX of withdrawal at this time Denies auditory/visual hallucinations. He is without tremors Closely monitor; implement [place] protocol B-12, thiamine and folate (8) DVT prophylaxis Current Visit: No Status: Acute Assessment and Plan: Subcutaneous heparin - Time Spent with Patient Total time spent is greater than 50% in coordination of care (as documented) at patient's floor/unit and/or counseling patient: less than 15 minutes Plan of Care Discussed with: patient Internal Medicine: Result - Labs CBC & Chem 7: 02/20/18 14:29 02/20/18 14:29 Labs: Liver Function 02/21/18 Range/Units 04:24 Total Bilirubin 2.6 H (0.3-1.0) mg/dL Direct Bilirubin 0.5 H (0.0-0.2) mg/dL AST 34 (13-39) Units/L ALT 48 (7-52) Units/L Alkaline Phosphatase 72 (34-104) Units/L Albumin 3.5 (3.5-5.7) g/dL - VTE Reasons for not Prescribing Prophylaxis: Treatment not Indicated - Low risk for VTE Deep Vein Thrombosis/Pulmonary Embolism Present on Admission: No Consult Discharge Plan - Plan Referrals: [facility] [Provider Group] (An appointment has been requested. The office will contact you at home to schedule an appointment. ) Richy Mc DO [Primary Care Provider] - (Please contact your provider to schedule and appointment. ) (1) Congestive heart failure Qualifiers: Heart failure type: biventricular Qualified Code(s): I50.82 - Biventricular heart failure (2) COPD (chronic obstructive pulmonary disease) Qualifiers: COPD type: emphysema Emphysema type: panlobular Qualified Code(s): J43.1 - Panlobular emphysema (5) CAD (coronary artery disease) Qualifiers: Coronary Disease-Associated Artery/Lesion type: [place] artery [place] vs. transplanted heart: [place] heart Associated angina: without angina Qualified Code(s): I25.10 - Atherosclerotic heart disease of [place] coronary artery without angina pectoris
[2018-02-21 13:39] LABS: Hepatitis B Surface Antigen Nonreactive (Nonreactive)
[2018-02-21] MEDS: *HR* Heparin 5,000 UNIT/ML VIAL SQ SCH (17:43)
[2018-02-21] MEDS: Melatonin 3 MG TABLET PO PRN (20:11)
[2018-02-21] MEDS: Ondansetron 4 MG/2 ML VIAL IVP PRN (20:11)
[2018-02-21] MEDS ORDERED: Ibuprofen 600 MG TABLET PO ONE (23:39)
[2018-02-22] MEDS: Ondansetron 4 MG/2 ML VIAL IVP PRN (02:02)
[2018-02-22 02:10] LABS: Hepatitis A Antibody IgM Nonreactive (Nonreactive); Hepatitis B Core IgM Nonreactive (Nonreactive); Hepatitis C Virus Antibody Nonreactive (Nonreactive)
[2018-02-22 05:05] LABS: Basophils % 0.3 %; Eosinophils # 0.1 K/mcL (0.0-0.6); Eosinophils % 0.8 %; Hematocrit 39.1 % (37.5-50.1); Immature Granulocytes % 0.3 % (0-4); Lymphocytes # 0.7 K/mcL (0.6-4.6); Mean Corpuscular HGB Conc 32.7 g/dL (31.6-35.5); Mean Corpuscular Volume 91.6 fL (83.0-100.0); Mean Platelet Volume 12.5 fL (9.4-12.4); Monocytes # 0.4 K/mcL (0.0-1.3); Monocytes % 5.3 %; Neutrophils # 6.6 K/mcL (1.6-8.9); Platelet Count 166 K/mcL (140-400); Red Blood Count 4.27 M/mcL (4.19-5.50); Red Cell Distribution Width 14.6 % (11.5-14.5); Segmented Neutrophils % 84.3 %
[2018-02-22 05:06] LABS: Hemoglobin 12.8 g/dL (12.9-16.9)
[2018-02-22 05:22] LABS: Calcium 9.1 mg/dL (8.6-10.3)
[2018-02-22 05:24] LABS: Albumin 3.5 g/dL (3.5-5.7); Albumin/Globulin Ratio 1.5 (1.1-2.2); Bilirubin,Direct 0.5 mg/dL (0.0-0.2); Bilirubin,Indirect 1.6 mg/dL (0.0-1.2); Bilirubin,Total 2.1 mg/dL (0.3-1.0); Globulin 2.3 g/dL (2.4-3.5); Total Protein 5.8 g/dL (6.4-8.9)
[2018-02-22] MEDS: *HR* Heparin 5,000 UNIT/ML VIAL SQ SCH ×2 (05:39→18:13)
[2018-02-22] MEDS: Thiamine (B-1) 100 MG TABLET PO SCH (08:11)
[2018-02-22] MEDS: Furosemide 40 MG TABLET PO SCH (08:11)
[2018-02-22] MEDS: Aspirin Enteric Coated 81 MG Tablet PO SCH (08:11)
[2018-02-22] MEDS: Vitamin B Complex/Vit C/Vit E 1 EACH TABLET PO SCH (08:11)
[2018-02-22] MEDS: Folic Acid 1 MG TABLET PO SCH (08:11)
--- NOTE | 2018-02-22 10:54 | Gastroenterology Consult Note ---
<Heather Appiah - Last Filed: 02/22/18 16:30> Date of Encounter: 02/22/18 Time of Encounter: 10:20 - Assessment and plan (1) Alcoholic cirrhosis of liver with ascites Current Visit: Yes Status: Suspected Assessment and plan: 57 year old male who presented with increased edema and shortness of breath. He has dilated cardiomyopathy and cirrhosis. He had not been taking lasix at home. He is advised to stay on lasix would recommend adding aldactone as well but will defer diuretics management to cardiology. He has gallbladder wall thickening which is likely due to cirrhosis, but also has a large gallstone. MRI is pending. He is nontender, complains of occasional nausea not related to food. Will check further labs for cirrhosis. He needs EGD to screen for esophageal varices and for dysphagia, will plan for tomorrow. (2) Dilated cardiomyopathy Current Visit: Yes Status: Acute (3) Dysphagia Current Visit: Yes Status: Acute Qualifiers: Dysphagia type: esophageal phase Qualified Code(s): R13.10 - Dysphagia, unspecified - Time Spent With Patient Total time spent is greater than 50% in coordination of care (as documented) at patient's floor/unit and/or counseling patient: GI History of Present Illness - Data of Consult Patient: new to practice Consult date: 02/22/18 Requesting Physician: Conrado Izaguirre - Consult Narrative Reason for consult: nausea, abdominal pain History of present illness: Mr Wiggins is a 57-year-old man who has had long-standing history of alcohol drinking. It was in December of this year when he was diagnosed with dilated cardiomyopathy, likely secondary to alcohol use. His echocardiogram from showed left ventricular ejection fraction of 25%. He denies any alcohol use for the past 6 weeks,. He does admit to 20 years of heavy drinking every weekend before that (other records show 6-8 beers daily for 20 years). He denies any family history of liver disease. He was started on Lasix after last admission but states his primary care physician took him off it. He says he started taking it again when he became more bloated and short of breath but it did not offer relief therefore he stopped taking it. He has been developing progressing dyspnea on exertion in the last 1-2 weeks. It is associated with nocturnal dyspnea developing in the last few days, and has been unable to sleep in bed. He denies chest pain. He denies coughing and wheezing. 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 He is not using oxygen for that. Labs on admission show a total bilirubin 2.1, direct bili 0.5 AST 53 ALT 76, albumin 3.5 WBC 7.8, hemoglobin 12.8, platelets 166, sodium 141. CT of the abdomen and pelvis shows small amount of ascites, mild periportal edema and mild splenomegaly and mild enlarged upper abdomen and periportal lymph nodes, cardiomegaly and small bilateral pleural effusions. Abdominal ultrasound shows fatty liver, mild ascites, large gallstone within a marked gallbladder wall thickening. EGD: denies Colon: 06/26 ([facility]) enlarged prostate, 5 tubular adenomatous polyps NSAIDS: asa 81 mg, aleve prn anticoagulants; heparin sq Past Med Surg Social Fam HX - Past Medical History Medical history: COPD, hypertension Psychiatric history: no psych history - Past Surgical History Surgical History: no surgical history Additional surgical history: dental - Social History Smoking Status: Former smoker Smokeless Tobacco Status: No Alcohol use: occasionally Drug use: marijuana - Family History Mother Age: 80 Living Status: Still Living Hx Family Cardiac Disorders: No Father Living Status: Age at : 77 Cause of : lung cancer Hx Family Cardiac Disorders: No Sister Living Status: Age at : 70 Cause of : stroke Brother Living Status: Age at : 78 Review of Systems: GI: as per [place] GENERAL: denies fever, has some chills EYES: mild yellow discoloration ENT: he complains of dysphagia CARDIO: denies chest pain, palpitations RESP: Shortness of breath with exertion : denies change in color of urine NEURO: weakness HEME: Denies any bruising MS: denies joint pain, joint swelling or back pain. DERM: denies rash or itching PSYCH: Denies history of anxiety or depression - Constitutional Vitals: Temp Pulse Resp BP Pulse Ox 97.5 F L 91 22 100/73 94 02/22/18 10:41 02/22/18 10:41 02/22/18 10:41 02/22/18 10:41 02/22/18 10:41 Exam: CONSTITUTIONAL:~alert, no acute distress.~HEAD:~normocephalic.~EYES:~mild, jaundice.~NECK:~no obvious swelling.~HEART:~regular rate and rhythm, no murmurs. ~LUNGS:~bilateral good air entry.~ABDOMEN:~softly, distended, soft, non tender, no masses palpable, no organomegaly.~RECTAL EXAM:~Deferred.~EXTREMITIES:~no clubbing, cyanosis, 1+ BLE edema.~SKIN:~mild jaundice.~NEUROLOGIC:~no obvious focal defect.~~~~ Results - Labs CBC & Chem 7: 02/22/18 04:15 02/22/18 04:15 Labs: Last Result Calcium 9.1 mg/dL (8.6-10.3) 02/22/18 04:15 Troponin I 0.03 ng/mL (< 0.04) 02/21/18 12:41 Entire Visit Hgb 12.8 g/dL (12.9-16.9) L D 02/22/18 04:15 Hct 39.1 % (37.5-50.1) 02/22/18 04:15 Total Bilirubin 2.1 mg/dL (0.3-1.0) H 02/22/18 04:15 AST 53 Units/L (13-39) H 02/22/18 04:15 ALT 76 Units/L (7-52) H 02/22/18 04:15 - Impressions Impressions Abdomen Ultrasound 02/21/18 14:00 IMPRESSION: Large gallstone with marked gallbladder wall thickening. These changes most likely represent chronic cholecystitis though clinical correlation is recommended to help exclude acute cholecystitis. No pericholecystic fluid or Bautista sign is identified. Fatty infiltration within liver. Mild ascites. D/ : / 02/21/2018 15:29:54 Chris Peterson MD / karly Interpreting Provider: Chris Peterson MD Abdomen/Pelvis CT 02/21/18 20:16 IMPRESSION: 1. Small amount of ascites throughout abdomen and pelvis. Etiology is unclear. This may be secondary to congestive heart failure, or hepatic failure. 2. Mild amount of periportal edema and/or intrahepatic biliary ductal dilatation. Gallbladder wall edema and gallbladder wall thickening is nonspecific in this setting. Previously noted gallstone is not calcified, therefore not seen on CT examination. This is likely secondary to differences in technique. If there is a continued clinical concern for acute cholecystitis, consider HIDA scan. 3. Mild splenomegaly. Mildly enlarged upper abdomen venous collaterals are not well evaluated without intravenous contrast. This could indicate portal hypertension. Follow-up postcontrast CT or MR imaging may be obtained as clinically warranted. 4. Mildly enlarged upper abdomen and periportal lymph nodes are nonspecific, but may be reactive in this setting. 5. Under distended and thickened urinary bladder wall with mild inflammation. This could indicate chronic urinary bladder outlet obstruction given the enlarged prostate. Correlate clinically for any concern of UTI. 6. Cardiomegaly with small bilateral pleural effusions. D/ / 02/21/2018 23:35:06 Nito Paul MD / simón Interpreting Provider: Nito Paul MD Consult Discharge Plan - Plan Referrals: [facility] [Provider Group] (An appointment has been requested. The office will contact you at home to schedule an appointment. ) Colopy,Richy Aldrich DO [Primary Care Provider] - (Please contact your provider to schedule and appointment. ) <Serafin Ponce - Last Filed: 02/22/18 17:48> Date of Encounter: 02/22/18 Time of Encounter: 15:00 - Time Spent With Patient Total time spent is greater than 50% in coordination of care (as documented) at patient's floor/unit and/or counseling patient: GI History of Present Illness - Data of Consult Requesting Physician: Conrado Izaguirre - Consult Narrative History of present illness: Mr. Wiggins is a 57 year old male - Constitutional Vitals: Temp Pulse Resp BP Pulse Ox 97.6 F 94 20 100/67 97 02/22/18 15:47 02/22/18 15:47 02/22/18 15:47 02/22/18 15:47 02/22/18 15:47 Results - Labs CBC & Chem 7: 02/22/18 04:15 02/22/18 04:15 Labs: Last Result Calcium 9.1 mg/dL (8.6-10.3) 02/22/18 04:15 Troponin I 0.03 ng/mL (< 0.04) 02/21/18 12:41 Entire Visit Hgb 12.8 g/dL (12.9-16.9) L D 02/22/18 04:15 Hct 39.1 % (37.5-50.1) 02/22/18 04:15 PT 17.1 Seconds (9.4-12.1) H 02/22/18 11:49 Total Bilirubin 2.1 mg/dL (0.3-1.0) H 02/22/18 04:15 AST 53 Units/L (13-39) H 02/22/18 04:15 ALT 76 Units/L (7-52) H 02/22/18 04:15 - ABG ABG results: PT/INR, D-dimer PT 17.1 Seconds (9.4-12.1) H 02/22/18 11:49 - Impressions Impressions Abdomen/Pelvis CT 02/21/18 20:16 IMPRESSION: 1. Small amount of ascites throughout abdomen and pelvis. Etiology is unclear. This may be secondary to congestive heart failure, or hepatic failure. 2. Mild amount of periportal edema and/or intrahepatic biliary ductal dilatation. Gallbladder wall edema and gallbladder wall thickening is nonspecific in this setting. Previously noted gallstone is not calcified, therefore not seen on CT examination. This is likely secondary to differences in technique. If there is a continued clinical concern for acute cholecystitis, consider HIDA scan. 3. Mild splenomegaly. Mildly enlarged upper abdomen venous collaterals are not well evaluated without intravenous contrast. This could indicate portal hypertension. Follow-up postcontrast CT or MR imaging may be obtained as clinically warranted. 4. Mildly enlarged upper abdomen and periportal lymph nodes are nonspecific, but may be reactive in this setting. 5. Under distended and thickened urinary bladder wall with mild inflammation. This could indicate chronic urinary bladder outlet obstruction given the enlarged prostate. Correlate clinically for any concern of UTI. 6. Cardiomegaly with small bilateral pleural effusions. D/ / 02/21/2018 23:35:06 Nito Paul MD / simón Interpreting Provider: Nito Paul MD - Attending Attestation I have personally performed a face to face evaluation on this patient. I have reviewed and agree with the care plan. History and Exam by me shows: Patient seen. Denies any abdominal swelling or pain did had some leg swelling. Does admit of some dysphagia. On examination abdomen is soft no focal tenderness liver is mildly enlarged. Assessment: Patient with possible cirrhosis multifactorial including due to cardiomyopathy and alcohol induced now with dysphagia anjali mildly abnormal LFTs. Abnormal LFTs are most probably due to hepatopathy from CHF. Rec: EGD to rule out varices rule out esophagitis
--- NOTE | 2018-02-22 12:02 | Internal Med Progress Note ---
Hospitalist Progress Note - Encounter Date of Encounter: 02/22/18 Time of Encounter: 12:00 - Subjective Interval History: Seen and examined at bedside today. Reporting abdominal pain, nausea, abdominal distention and epigastric tenderness to palpation. No acute changes overnight - Exam Vitals: Temp Pulse Resp BP Pulse Ox 97.5 F L 91 22 100/73 94 02/22/18 10:41 02/22/18 10:41 02/22/18 10:41 02/22/18 10:41 02/22/18 10:41 Exam: PHYSICAL EXAMINATION: GENERAL: The patient is an ill appearing male in mild distress due to abdominal discomfort. He is alert and oriented x3. HEENT: Head is normocephalic and atraumatic. Extraocular muscles are intact. Pupils are equal, round, and reactive to light and accommodation. Positive for scleral icterus. Nares appeared normal. Mouth is well hydrated and without lesions. Mucous membranes are moist. Posterior pharynx clear of any exudate or lesions. NECK: Supple. No carotid bruits. No lymphadenopathy or thyromegaly. LUNGS: Clear to auscultation. HEART: Regular rate and rhythm, S1, S2 without murmur rubs or gallops. ABDOMEN:NABS Per palpation and percussive maneuvers appears to have hepatomegaly. Abdomen distended and tympanic, but nontender to palpation and soft EXTREMITIES: Without any cyanosis, clubbing, rash, lesions or edema. NEUROLOGIC: Cranial nerves II through XII are grossly intact. SKIN: No ulceration or induration present. - Assessment and Plan (1) Alcoholic cirrhosis of liver with ascites Current Visit: Yes Status: Suspected Assessment and Plan: Long-standing history of alcoholism reporting drinking 6-8 drinks per day for the last 20 years On presentation was noted to have altered liver function; total bilirubin 2.6, direct bilirubin 0.5, indirect bilirubin 2.1; AST 34, ALT 48, alkaline phosphatase 72 Scleral icterus present, patient appears jaundiced. Has abdominal distention, abdomen is tympanic to percussion, per my assessment appears to have some hepatomegaly -Obtain abdominal ultrasound of liver or pancreas and gallbladder now, repeat hepatic panel in the morning, check hepatitis panel now 02/22--mild ascites persistent. Per ultrasound found to have gallbladder wall thickening pain cholelithiasis. We will thickening could be due to cirrhosis. MRI pending. GI seeing in consultation, thank you and I appreciate your recommendations. Patient remains nonacute abdomen nontender. Continue to endorse nausea and dyspnea with exertion. Patient remains jaundiced today, total bilirubin 2.1, direct bilirubin 0.5 and indirect bilirubin 1.6. Transaminitis this morning with AST 53 and ALT 76. Alkaline phosphatase normal at 71. Repeat labs daily. (2) Congestive heart failure Current Visit: Yes Status: Acute Assessment and Plan: mild-moderate CAD per [facility] in 12/24 revealing moderate one vessel CAD Systolic CHF with global HK EF 25% Presented with dyspnea, worse with exertion, decreased exercise tolerance, orthopnea, dizziness/lightheadedness, no abdominal distention, nausea and lower extremity edema BNP elevated on admission-[id number] 02/22--, continuing IV diuretics. Continue to closely monitor intake and output. Continues to have mild ascites, GI consult considering adding Aldactone. Weight stable. Positive fluid balance 210 ML. Reporting adequate urinary output however per chart review this is unclear. We will order strict I 's and O's and discussed with nursing staff. Continue with Coreg at increased dose, patient tolerating well. Will need a repeat TTE in 3 months in outpatient setting (3) Acute kidney injury Current Visit: Yes Status: Acute Assessment and Plan: IVON with decreased oral intake and lasix avoid nephrotoxins and monitor renal function Monitor I&O strictly With alcoholic cirrhosis and ascites continue Lasix for now. GI consider adding Aldactone (4) COPD (chronic obstructive pulmonary disease) Current Visit: No Status: Chronic Assessment and Plan: Per history, not in acute exacerbation (5) Abnormal liver function Current Visit: Yes Status: Acute Assessment and Plan: as above (6) CAD (coronary artery disease) Current Visit: No Status: Acute Assessment and Plan: per hx Continue ASA, increase Coreg to 6.25 mg daily due to tachycardia, continue Lasix Currently chest pain-free Reporting epigastric and B/L upper quadrant pain described as a "pinching sensation" He reports he has been experiencing this intermittently throughout the last month 02/22- Tolerating increase in Coreg dose. Chest pain free today. No events on tele, continue cardiac meds and monitor on tele. (7) Dilated cardiomyopathy Current Visit: No Status: Acute Assessment and Plan: As above (8) Alcohol abuse Current Visit: Yes Status: Acute Assessment and Plan: 20 year history of alcohol abuse reporting 6-8 drinks daily Reports that he has not had a drink since late December Does not appear to have S/SX of withdrawal at this time Denies auditory/visual hallucinations. He is without tremors Closely monitor; implement CIWA protocol B-12, thiamine and folate 02/22- Without s/sx of withdrawal. Last drink approximately 6 weeks ago. Continue CIWA and monitor. (9) DVT prophylaxis Current Visit: No Status: Acute Assessment and Plan: SC heparin - Time Spent with Patient Total time spent is greater than 50% in coordination of care (as documented) at patient's floor/unit and/or counseling patient: less than 15 minutes Plan of Care Discussed with: patient Internal Medicine: Result - Labs CBC & Chem 7: 02/22/18 04:15 02/22/18 04:15 Labs: Short CBC 02/22/18 Range/Units 04:15 WBC 7.8 (4.3-11.1) K/mcL Hgb 12.8 L D (12.9-16.9) g/dL Hct 39.1 (37.5-50.1) % Plt Count 166 (140-400) K/mcL Neutrophils # 6.6 (1.6-8.9) K/mcL BMP 02/22/18 04:15 Sodium 141 Potassium 4.0 Chloride 107 Carbon Dioxide 20 L BUN 32 H Creatinine 1.47 H Glucose 101 Calcium 9.1 Cardiac Enzymes 02/21/18 Range/Units 12:41 Troponin I 0.03 (< 0.04) ng/mL Liver Function 02/22/18 Range/Units 04:15 Total Bilirubin 2.1 H (0.3-1.0) mg/dL Direct Bilirubin 0.5 H (0.0-0.2) mg/dL AST 53 H (13-39) Units/L ALT 76 H (7-52) Units/L Alkaline Phosphatase 71 (34-104) Units/L Albumin 3.5 (3.5-5.7) g/dL - Impressions Impressions Abdomen Ultrasound 02/21/18 14:00 IMPRESSION: Large gallstone with marked gallbladder wall thickening. These changes most likely represent chronic cholecystitis though clinical correlation is recommended to help exclude acute cholecystitis. No pericholecystic fluid or Bautista sign is identified. Fatty infiltration within liver. Mild ascites. D/ /21/2018 15:29:54 Chris Peterson MD / karly Interpreting Provider: Chris Peterson MD Abdomen/Pelvis CT 02/21/18 20:16 IMPRESSION: 1. Small amount of ascites throughout abdomen and pelvis. Etiology is unclear. This may be secondary to congestive heart failure, or hepatic failure. 2. Mild amount of periportal edema and/or intrahepatic biliary ductal dilatation. Gallbladder wall edema and gallbladder wall thickening is nonspecific in this setting. Previously noted gallstone is not calcified, therefore not seen on CT examination. This is likely secondary to differences in technique. If there is a continued clinical concern for acute cholecystitis, consider HIDA scan. 3. Mild splenomegaly. Mildly enlarged upper abdomen venous collaterals are not well evaluated without intravenous contrast. This could indicate portal hypertension. Follow-up postcontrast CT or MR imaging may be obtained as clinically warranted. 4. Mildly enlarged upper abdomen and periportal lymph nodes are nonspecific, but may be reactive in this setting. 5. Under distended and thickened urinary bladder wall with mild inflammation. This could indicate chronic urinary bladder outlet obstruction given the enlarged prostate. Correlate clinically for any concern of UTI. 6. Cardiomegaly with small bilateral pleural effusions. D/ / 02/21/2018 23:35:06 Nito Paul MD / simón Interpreting Provider: Nito Paul MD - VTE Reasons for not Prescribing Prophylaxis: Treatment not Indicated - Low risk for VTE Deep Vein Thrombosis/Pulmonary Embolism Present on Admission: No Consult Discharge Plan - Plan Referrals: [facility] [Provider Group] (An appointment has been requested. The office will contact you at home to schedule an appointment. ) Richy Mc DO [Primary Care Provider] - (Please contact your provider to schedule and appointment. ) (2) Congestive heart failure Qualifiers: Heart failure type: biventricular Qualified Code(s): I50.82 - Biventricular heart failure (4) COPD (chronic obstructive pulmonary disease) Qualifiers: COPD type: emphysema Emphysema type: panlobular Qualified Code(s): J43.1 - Panlobular emphysema (6) CAD (coronary artery disease) Qualifiers: Coronary Disease-Associated Artery/Lesion type: [place] artery [place] vs. transplanted heart: [place] heart Associated angina: without angina Qualified Code(s): I25.10 - Atherosclerotic heart disease of [place] coronary artery without angina pectoris
[2018-02-22 12:40] LABS: INR 1.5; Prothrombin Time 17.1 Seconds (9.4-12.1)
[2018-02-22] MEDS: Melatonin 3 MG TABLET PO PRN (22:00)
[2018-02-23 11:36] LABS: Basophils % 0.4 %; Eosinophils # 0.1 K/mcL (0.0-0.6); Eosinophils % 1.4 %; Hematocrit 41.2 % (37.5-50.1); Hemoglobin 13.5 g/dL (12.9-16.9); Immature Granulocytes % 0.3 % (0-4); Immature Platelets 12.5 % (1.1-6.1); Lymphocytes # 0.6 K/mcL (0.6-4.6); Mean Corpuscular HGB Conc 32.8 g/dL (31.6-35.5); Mean Corpuscular Hemoglobin 30.5 pg (28.0-33.3); Mean Corpuscular Volume 93.2 fL (83.0-100.0); Mean Platelet Volume 12.7 fL (9.4-12.4); Monocytes # 0.5 K/mcL (0.0-1.3); Monocytes % 6.6 %; Neutrophils # 6.6 K/mcL (1.6-8.9); Platelet Count 176 K/mcL (140-400); Red Blood Count 4.42 M/mcL (4.19-5.50); Red Cell Distribution Width 14.8 % (11.5-14.5); Segmented Neutrophils % 83.3 %
[2018-02-23 12:03] LABS: Albumin 3.7 g/dL (3.5-5.7); Albumin/Globulin Ratio 1.7 (1.1-2.2); Bilirubin,Direct 0.5 mg/dL (0.0-0.2); Bilirubin,Indirect 1.7 mg/dL (0.0-1.2); Bilirubin,Total 2.2 mg/dL (0.3-1.0); Globulin 2.2 g/dL (2.4-3.5); Total Protein 5.9 g/dL (6.4-8.9)
[2018-02-23] MEDS: *HR* Heparin 5,000 UNIT/ML VIAL SQ SCH ×2 (12:12→17:14)
[2018-02-23] MEDS: Aspirin Enteric Coated 81 MG Tablet PO SCH (12:12)
[2018-02-23] MEDS: Furosemide 40 MG TABLET PO SCH (12:13)
[2018-02-23] MEDS: Folic Acid 1 MG TABLET PO SCH (12:13)
[2018-02-23] MEDS: Thiamine (B-1) 100 MG TABLET PO SCH (12:13)
[2018-02-23] MEDS: Vitamin B Complex/Vit C/Vit E 1 EACH TABLET PO SCH (12:13)
[2018-02-23] MEDS ORDERED: *HR* Propofol 200 MG/20 ML VIAL IVP ONE (14:12)
--- NOTE | 2018-02-23 14:54 | Anesthesia Evaluation PreOp ---
Date of Encounter: 02/23/18 Time of Encounter: 14:54 - Past History Planned Operation: EGD Cardiac History: Other (DILATED CARDIOMYOPATHY, ACUTE ON CHRONIC SYSTOLIC & DIASTOLIC HEART FAILURE, ORTHOPNEA, PAROXYSMAL NOCTURNAL DYSPNEA) Pulmonary History: Former smoker (QUIT 12/2017), COPD SURVEY [employer]W CHIEF History: Denies Any Significant HX Other Medical History: Hepatic (LIVER CIRRHOSIS), Renal (CKD3), Other (D YSPHAGIA) Alcohol Use: none (6-8 BEERS/DAY X20 YRS - QUIT 12/2017) Drug use: marijuana Medications and Allergies Aspirin Enteric Coated [Aspirin EC] 81 mg PO DAILY #30 tablet. 01/03/18 [Rx] Allergy/AdvReac Type Severity Reaction Status Date / Time No Known Allergies Allergy Verified 02/20/18 18:56 - Meds/Allergy Pre-op Review Medications Reviewed: Yes Allergies Reviewed: Yes Anesthesia Results - Labs 02/23/18 04:55 02/23/18 04:55 Laboratory Last Values WBC 7.9 K/mcL (4.3-11.1) 02/23/18 04:55 RBC 4.42 M/mcL (4.19-5.50) 02/23/18 04:55 Hgb 13.5 g/dL (12.9-16.9) 02/23/18 04:55 Hct 41.2 % (37.5-50.1) 02/23/18 04:55 MCV 93.2 fL (83.0-100.0) 02/23/18 04:55 MCH 30.5 pg (28.0-33.3) 02/23/18 04:55 MCHC 32.8 g/dL (31.6-35.5) 02/23/18 04:55 RDW 14.8 % (11.5-14.5) H 02/23/18 04:55 Plt Count 176 K/mcL (140-400) 02/23/18 04:55 MPV 12.7 fL (9.4-12.4) H 02/23/18 04:55 Immature Gran % 0.3 % (0-4) 02/23/18 04:55 Seg Neutrophils % 83.3 % 02/23/18 04:55 Lymphocytes % 8.0 % 02/23/18 04:55 Monocytes % 6.6 % 02/23/18 04:55 Eosinophils % 1.4 % 02/23/18 04:55 Basophils % 0.4 % 02/23/18 04:55 Neutrophils # 6.6 K/mcL (1.6-8.9) 02/23/18 04:55 Lymphocytes # 0.6 K/mcL (0.6-4.6) 02/23/18 04:55 Monocytes # 0.5 K/mcL (0.0-1.3) 02/23/18 04:55 Eosinophils # 0.1 K/mcL (0.0-0.6) 02/23/18 04:55 Basophils # 0.0 K/mcL (0.0-0.2) 02/23/18 04:55 Immature Plt Fraction 12.5 % (1.1-6.1) H 02/23/18 04:55 PT 17.1 Seconds (9.4-12.1) H 02/22/18 11:49 INR 1.5 02/22/18 11:49 Sodium 139 mEq/L (136-145) 02/23/18 04:55 Potassium 4.0 mEq/L (3.5-5.1) 02/23/18 04:55 Chloride 104 mEq/L (98-107) 02/23/18 04:55 Carbon Dioxide 24 mEq/L (23-29) 02/23/18 04:55 BUN 33 mg/dL (6-20) H 02/23/18 04:55 Creatinine 1.56 mg/dL (0.70-1.30) H 02/23/18 04:55 Est GFR ( Amer) 56 (> 60) L 02/23/18 04:55 Est GFR (Non-Af Amer) 46 (> 60) L 02/23/18 04:55 BUN/Creatinine Ratio 21 (6-26) 02/23/18 04:55 Glucose 100 mg/dL (70-105) 02/23/18 04:55 Calculated Osmolality 295 (280-300) 02/23/18 04:55 Lactic Acid 2.0 mmol/L (0.5-2.2) 02/20/18 14:29 Calcium 9.0 mg/dL (8.6-10.3) 02/23/18 04:55 Magnesium 1.9 mg/dL (1.6-2.6) 02/21/18 04:24 Total Bilirubin 2.2 mg/dL (0.3-1.0) H 02/23/18 04:55 Direct Bilirubin 0.5 mg/dL (0.0-0.2) H 02/23/18 04:55 Indirect Bilirubin 1.7 mg/dL (0.0-1.2) H 02/23/18 04:55 AST 76 Units/L (13-39) H 02/23/18 04:55 ALT 112 Units/L (7-52) H 02/23/18 04:55 Alkaline Phosphatase 72 Units/L (34-104) 02/23/18 04:55 Troponin I 0.03 ng/mL (< 0.04) 02/21/18 12:41 B-Natriuretic Peptide 2458 pg/mL (Less than 100) H 02/20/18 14:29 Serum Total Protein 5.9 g/dL (6.4-8.9) L 02/23/18 04:55 Albumin 3.7 g/dL (3.5-5.7) 02/23/18 04:55 Globulin 2.2 g/dL (2.4-3.5) L 02/23/18 04:55 Albumin/Globulin Ratio 1.7 (1.1-2.2) 02/23/18 04:55 Hepatitis A IgM Ab Nonreactive (Nonreactive) 02/21/18 12:41 Hep Bs Antigen Nonreactive (Nonreactive) 02/21/18 12:41 Hep B Core IgM Ab Nonreactive (Nonreactive) 02/21/18 12:41 Hepatitis C Ab Screen Nonreactive (Nonreactive) 02/21/18 12:41 - Imaging Additional studies: TTE 12/30/2017: LVEF 25%. Moderately dilated left ventricle. Severe global left ventricular systolic dysfunction. Indeterminate diastolic function. Mildly dilated and hypokinetic right ventricle. Mildly thickened mitral valve leaflets, which are apically displaced. Moderate-severe mitral regurgitation, which was somewhat posteriorly directed. Mild tricuspid regurgitation. Moderate pulmonary hypertension. Estimated RVSP is 46 mmHg. [facility] 12/2017: There is moderate one vessel coronary artery disease. CHF with global HK EF 25% OOP to CAD Likely non ischemic CM Coronary Dominance: right Lesion Findings/Interventions * Left Main Coronary Artery The LMCA is angiographically free of disease. * Left Anterior Descending The LAD is angiographically free of disease. The 1st Diagonal is angiographically free of disease. * Circumflex There is a 25% stenosis in the Distal Circumflex. The lesion has no thrombus present. * Right Coronary Artery There is a 65% stenosis in the Proximal RCA. The lesion has no thrombus present. Anesthesia Exam Vital Signs/O2 Sat/Glucose, Most Recent Temp Pulse Resp BP Pulse Ox 97.8 F 78 16 109/82 95 02/23/18 14:45 02/23/18 14:45 02/23/18 14:45 02/23/18 14:45 02/23/18 14:45 Weight: 79 kg - BMI 25 NPO (# of Hours): 8 - HEENT Mallampati: II Teeth: Normal Oral Opening: Greater than 3 - Cardiac Rhythm: Regular - Pulmonary Breath Sounds: bilateral Clear Respiratory Effort: Symmetrical - Additional Findings Active Medications Aspirin (Aspirin Ec) 81 mg PO DAILY [facility] Stop: 08/23/18 09:01 Last Admin: 02/23/18 12:12 Dose: 81 mg Carvedilol (Coreg) 6.25 mg PO BIDWM [facility]; Protocol Stop: 08/23/18 21:01 Last Admin: 02/23/18 12:12 Dose: 6.25 mg Folic Acid (Folic Acid) 1 mg PO DAILY [facility] Stop: 08/23/18 12:16 Last Admin: 02/23/18 12:13 Dose: 1 mg Furosemide (Lasix) 40 mg PO DAILY [facility] Stop: 08/23/18 09:01 Last Admin: 02/23/18 12:13 Dose: 40 mg Heparin Sodium (Porcine) (Heparin) 5,000 unit SQ Q12HCO [facility] Stop: 08/23/18 18:01 Last Admin: 02/23/18 12:12 Dose: Not Given Sodium Chloride (0.9 % Sodium Chloride) 1,000 mls @ 50 mls/hr IVC .Q20H [facility] Stop: 08/25/18 15:01 Last Admin: 02/23/18 14:51 Dose: 50 mls/hr Lorazepam (Ativan) 1 mg IVP Q1H PRN PRN Reason: Alcohol Withdrawal Stop: 08/23/18 12:11 Lorazepam (Ativan) 2 mg IVP Q4HR PRN PRN Reason: CIWA Score of 10-21 Stop: 08/23/18 12:11 Lorazepam (Ativan) 4 mg IVP Q4HR PRN PRN Reason: CIWA Score of 22-45 Stop: 08/23/18 12:11 Melatonin (Melatonin) 3 mg PO HS PRN PRN Reason: Insomnia Stop: 08/22/18 22:59 Last Admin: 02/22/18 22:00 Dose: 3 mg Naloxone HCl (Narcan) 0.4 mg IVP Q2MIN PRN PRN Reason: SEE COMMENTS Stop: 08/22/18 19:27 Ondansetron HCl (Zofran) 4 mg IVP Q6HR PRN; Protocol PRN Reason: Nausea And Vomiting Stop: 08/22/18 22:56 Last Admin: 02/22/18 02:02 Dose: 4 mg Thiamine HCl (Vitamin B-1) 100 mg PO DAILY [facility] Stop: 08/23/18 12:16 Last Admin: 02/23/18 12:13 Dose: 100 mg Vitamin B Complex/Vit C/Vit E (Stresstab) 1 each PO DAILY [facility] Stop: 08/23/18 12:16 Last Admin: 02/23/18 12:13 Dose: 1 each Anesthesia Assess/Plan ASA Score: 4 Anesthetic Plan: MAC Monitoring Plan: Standard Monitors Recovery Plan: Other Anes Supervising Prov Stmt: Patient informed and consented. Risks, benefits, and alternatives discussed. Patient wishes to proceed.
[2018-02-23] MEDS ORDERED: 0.9 % Sodium Chloride 1,000 ML IVC SCH (15:00)
--- NOTE | 2018-02-23 15:49 | Internal Med Progress Note ---
Hospitalist Progress Note - Encounter Date of Encounter: 02/23/18 Time of Encounter: 15:46 - Subjective Interval History: No acute changes overnight - Exam Vitals: Temp Pulse Resp BP Pulse Ox 97.8 F 78 16 109/82 95 02/23/18 14:45 02/23/18 14:45 02/23/18 14:45 02/23/18 14:45 02/23/18 14:45 Exam: PHYSICAL EXAMINATION: GENERAL: The patient is an ill appearing male in mild distress due to abdominal discomfort. He is alert and oriented x3. HEENT: Head is normocephalic and atraumatic. Extraocular muscles are intact. Pupils are equal, round, and reactive to light and accommodation. Positive for scleral icterus. NECK: Supple. No carotid bruits. No lymphadenopathy or thyromegaly. LUNGS: Clear to auscultation AP and L. HEART: Regular rate and rhythm, S1, S2 without murmur rubs or gallops. ABDOMEN:NABS, Per palpation and percussive maneuvers appears to have hepatomegaly. Abdomen is distended and tympanic, but nontender to palpation and soft EXTREMITIES: Without any cyanosis, clubbing, rash, lesions or edema. NEUROLOGIC: Cranial nerves II through XII are grossly intact. SKIN: No ulceration or induration present. Jaundiced - Assessment and Plan (1) Alcoholic cirrhosis of liver with ascites Current Visit: Yes Status: Suspected Assessment and Plan: Long-standing history of alcoholism reporting drinking 6-8 drinks per day for the last 20 years On presentation was noted to have altered liver function; total bilirubin 2.6, direct bilirubin 0.5, indirect bilirubin 2.1; AST 34, ALT 48, alkaline phosphatase 72 Scleral icterus present, patient appears jaundiced. Has abdominal distention, abdomen is tympanic to percussion, per my assessment appears to have some hepatomegaly -Obtain abdominal ultrasound of liver or pancreas and gallbladder now, repeat hepatic panel in the morning, check hepatitis panel now 02/22--mild ascites persistent. Per ultrasound found to have gallbladder wall thickening pain cholelithiasis. We will thickening could be due to cirrhosis. MRI pending. GI seeing in consultation, thank you and I appreciate your recommendations. Patient remains nonacute abdomen nontender. Continue to endorse nausea and dyspnea with exertion. Patient remains jaundiced today, total bilirubin 2.1, direct bilirubin 0.5 and indirect bilirubin 1.6. Transaminitis this morning with AST 53 and ALT 76. Alkaline phosphatase normal at 71. Repeat labs daily. 02/23--clinically, patient remained stable and is improving. Mild ascites persistent, dyspneic with exertion. MRCP obtained impression of cholelithiasis without, duct stone. Mild gallbladder wall thickening which is likely reactive due to intra-abdominal ascites. Mild splenomegaly and trace abdominal ascites. Gastroenterology following. Patient undergoing EGD this afternoon. Findings of hiatal hernia, inflammation and erosions found in the duodenal bulb. Avoid ASA and NSAIDs, dietary restrictions with sodium 1-2 g daily, fluid restriction 1.5 L. renal function downtrending consider discharge tomorrow. Will need oral Lasix 20 mg daily and Aldactone 50 mg daily at D/C (2) Congestive heart failure Current Visit: Yes Status: Acute Assessment and Plan: mild-moderate CAD per [facility] in 12/24 revealing moderate one vessel CAD Systolic CHF with global HK EF 25% Presented with dyspnea, worse with exertion, decreased exercise tolerance, orthopnea, dizziness/lightheadedness, no abdominal distention, nausea and lower extremity edema BNP elevated on admission-2540 02/23--, Hold diuretics in the setting of IVON. LLE swelling improving, continues to have dyspnea with exertion. Continue to closely monitor intake and output. Continues to have mild ascites, GI consult considering adding Aldactone. Weight stable. Positive fluid balance 210 ML. Reporting adequate urinary output however per chart review this is unclear. We will order strict I's and O's and discussed with nursing staff. Continue with Coreg at increased dose, patient tolerating well. Will need a repeat TTE in 3 months in outpatient setting (3) Acute kidney injury Current Visit: Yes Status: Acute Assessment and Plan: IVON 2/2 decreased oral intake and lasix avoid nephrotoxins and monitor renal function Monitor I&O strictly holding lasix with worsening of IVON Scr 1.56 GI recommends adding Aldactone will hold off for now; monitor renal function overnight (4) COPD (chronic obstructive pulmonary disease) Current Visit: No Status: Chronic Assessment and Plan: Per history, not in acute exacerbation (5) Abnormal liver function Current Visit: Yes Status: Acute Assessment and Plan: as above (6) CAD (coronary artery disease) Current Visit: No Status: Acute Assessment and Plan: per hx Continue ASA, increase Coreg to 6.25 mg daily due to tachycardia, continue Lasix Currently chest pain-free Reporting epigastric and B/L upper quadrant pain described as a "pinching sensation" He reports he has been experiencing this intermittently throughout the last month 02/23- Tolerating increase in Coreg dose. Remains chest pain free today. No events on tele, continue to monitor. Continue cardiac meds. (7) Dilated cardiomyopathy Current Visit: Yes Status: Acute Assessment and Plan: As above (8) Alcohol abuse Current Visit: Yes Status: Acute Assessment and Plan: 20 year history of alcohol abuse reporting 6-8 drinks daily Reports that he has not had a drink since late December Does not appear to have S/SX of withdrawal at this time Denies auditory/visual hallucinations. He is without tremors Closely monitor; implement CIWA protocol B-12, thiamine and folate 02/23- Without s/sx of withdrawal. Last drink approximately 6 weeks ago. Continue CIWA and monitor. (9) DVT prophylaxis Current Visit: No Status: Acute Assessment and Plan: SC heparin - Time Spent with Patient Total time spent is greater than 50% in coordination of care (as documented) at patient's floor/unit and/or counseling patient: less than 15 minutes Plan of Care Discussed with: patient Internal Medicine: Result - Labs CBC & Chem 7: 02/23/18 04:55 02/23/18 04:55 Labs: Short CBC 02/23/18 Range/Units 04:55 WBC 7.9 (4.3-11.1) K/mcL Hgb 13.5 (12.9-16.9) g/dL Hct 41.2 (37.5-50.1) % Plt Count 176 (140-400) K/mcL Neutrophils # 6.6 (1.6-8.9) K/mcL BMP 02/23/18 04:55 Sodium 139 Potassium 4.0 Chloride 104 Carbon Dioxide 24 BUN 33 H Creatinine 1.56 H Glucose 100 Calcium 9.0 Liver Function 02/23/18 Range/Units 04:55 Total Bilirubin 2.2 H (0.3-1.0) mg/dL Direct Bilirubin 0.5 H (0.0-0.2) mg/dL AST 76 H (13-39) Units/L ALT 112 H (7-52) Units/L Alkaline Phosphatase 72 (34-104) Units/L Albumin 3.7 (3.5-5.7) g/dL - ABG Interpretation ABG results: PT/INR, D-dimer PT 17.1 Seconds (9.4-12.1) H 02/22/18 11:49 - Impressions Impressions Abdomen MRI 02/22/18 09:22 IMPRESSION: Cholelithiasis. No common duct stone. There is mild gallbladder wall thickening, likely reactive due to the intra-abdominal ascites Mild splenomegaly and trace abdominal ascites. D/ / Ravinder Christensen MD / Ravinder Christensen MD Interpreting Provider: Ravinder Christensen MD - VTE Reasons for not Prescribing Prophylaxis: Treatment not Indicated - Low risk for VTE Deep Vein Thrombosis/Pulmonary Embolism Present on Admission: No Consult Discharge Plan - Plan Referrals: [facility] [Provider Group] (An appointment has been requested. The office will contact you at home to schedule an appointment. ) Richy Mc DO [Primary Care Provider] - (Please contact your provider to schedule and appointment. ) (2) Congestive heart failure Qualifiers: Heart failure type: biventricular Qualified Code(s): I50.82 - Biventricular heart failure (4) COPD (chronic obstructive pulmonary disease) Qualifiers: COPD type: emphysema Emphysema type: panlobular Qualified Code(s): J43.1 - Panlobular emphysema (6) CAD (coronary artery disease) Qualifiers: Coronary Disease-Associated Artery/Lesion type: [place] artery [place] vs. transplanted heart: [place] chin heart Associated angina: without angina Qualified Code(s): I25.10 - Atherosclerotic heart disease of [place] coronary artery without angina pectoris
--- NOTE | 2018-02-23 16:05 | Electrocardiograph Report ---
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
--- NOTE | 2018-02-23 16:10 | Anesthesia Evaluation Post Op ---
Date of Encounter: 02/23/18 Time of Encounter: 15:33 - Vital Signs Vital Signs: Vital Signs Time 1530 BP 95/70 Pulse 82 Resp 18 O2 Sat 97 - Lungs Lungs: Clear Ascult./Percussion - Airway Airway: Non-obstructed - Cardiovascular Regular Rate - Mental Status Mental Status: Alert & Oriented, Answers Appropriately - Nausea Vomiting Nausea Vomiting: Not Present - Hydration Hydration: NPO, Has not voided - Discharge PostOp Status: Transfer Patient to floor
--- NOTE | 2018-02-23 16:21 | Electrocardiograph Report ---
[address] [id number] Test Date: 2018-02-20 Pat Name: Lewis Wiggins Department: EXAM2 Room: 3B47 Gender: M Sales Training Manager: : 1960 Requested By: Conrado Izaguirre Order Number: [id number] Reading MD: Candis Andrade Measurements Intervals [place] Rate: 109 P: 54 ND: 128 QRS: 22 QRSD: 93 T: 158 QT: 357 QTc: 481 Interpretive Statements Sinus tachycardia Left atrial enlargement Nonspecific T abnormalities, diffuse leads Electronically Signed On 02-23-2018 16:20:24 EDT by Candis Andrade
[2018-02-23] MEDS: Melatonin 3 MG TABLET PO PRN (21:18)
[2018-02-24] MEDS ORDERED: Simethicone 80 MG TAB.CHEW PO PRN (02:12)
[2018-02-24 04:13] LABS: Basophils % 0.2 %; Eosinophils # 0.1 K/mcL (0.0-0.6); Eosinophils % 0.7 %; Hematocrit 46.3 % (37.5-50.1); Immature Granulocytes % 0.2 % (0-4); Lymphocytes # 0.7 K/mcL (0.6-4.6); Lymphocytes % 7.5 %; Mean Corpuscular HGB Conc 32.2 g/dL (31.6-35.5); Mean Corpuscular Hemoglobin 30.3 pg (28.0-33.3); Mean Corpuscular Volume 94.1 fL (83.0-100.0); Mean Platelet Volume 12.6 fL (9.4-12.4); Monocytes # 0.5 K/mcL (0.0-1.3); Monocytes % 5.3 %; Neutrophils # 8.3 K/mcL (1.6-8.9); Platelet Count 207 K/mcL (140-400); Red Blood Count 4.92 M/mcL (4.19-5.50); Red Cell Distribution Width 14.7 % (11.5-14.5); Segmented Neutrophils % 86.1 %
[2018-02-24 04:19] LABS: Hemoglobin 14.9 g/dL (12.9-16.9)
[2018-02-24 04:34] LABS: Albumin/Globulin Ratio 1.5 (1.1-2.2); Bilirubin,Direct 0.6 mg/dL (0.0-0.2); Bilirubin,Indirect 1.7 mg/dL (0.0-1.2); Bilirubin,Total 2.3 mg/dL (0.3-1.0); Globulin 2.6 g/dL (2.4-3.5); Total Protein 6.6 g/dL (6.4-8.9)
[2018-02-24 04:35] LABS: Calcium 8.9 mg/dL (8.6-10.3); Potassium 3.7 mEq/L (3.5-5.1)
[2018-02-24] MEDS: *HR* Heparin 5,000 UNIT/ML VIAL SQ SCH ×2 (05:44→17:39)
[2018-02-24] MEDS ORDERED: Sennosides 8.6 MG TABLET PO PRN (08:52)
[2018-02-24] MEDS: *HR* OxyCODONE Immed Rel 5 MG TABLET PO PRN ×2 (08:55→17:48)
[2018-02-24] MEDS: Folic Acid 1 MG TABLET PO SCH (08:56)
[2018-02-24] MEDS: Aspirin Enteric Coated 81 MG Tablet PO SCH (08:56)
[2018-02-24] MEDS: Thiamine (B-1) 100 MG TABLET PO SCH (08:56)
[2018-02-24] MEDS: Vitamin B Complex/Vit C/Vit E 1 EACH TABLET PO SCH (08:56)
--- NOTE | 2018-02-24 10:20 | Internal Med Progress Note ---
Hospitalist Progress Note - Encounter Date of Encounter: 02/24/18 Time of Encounter: 10:16 - Subjective Interval History: No acute changes overnight, continuing to have abdominal discomfort. Now reporting constipation - Exam Vitals: Temp Pulse Resp BP Pulse Ox 97.4 F L 96 18 106/75 97 02/24/18 07:33 02/24/18 07:33 02/24/18 07:33 02/24/18 07:33 02/24/18 07:33 Exam: PHYSICAL EXAMINATION: GENERAL: The patient is an ill appearing male in mild distress due to abdominal discomfort. He is alert and oriented x3. HEENT: Head is normocephalic and atraumatic. Extraocular muscles are intact. Pupils are equal, round, and reactive to light and accommodation. Positive for scleral icterus. NECK: Supple. No carotid bruits. No lymphadenopathy or thyromegaly. LUNGS: Clear to auscultation AP and L. HEART: Regular rate and rhythm, S1, S2 without murmur rubs or gallops. ABDOMEN: Abdomen is soft and mildly distended without tenderness to palpation, hypoactive bowel sounds EXTREMITIES: Without any cyanosis, clubbing, rash, lesions or edema. NEUROLOGIC: Cranial nerves II through XII are grossly intact. SKIN: No ulceration or induration present. Jaundiced - Assessment and Plan (1) Alcoholic cirrhosis of liver with ascites Current Visit: Yes Status: Suspected Assessment and Plan: Long-standing history of alcoholism reporting drinking 6-8 drinks per day for the last 20 years On presentation was noted to have altered liver function; total bilirubin 2.6, direct bilirubin 0.5, indirect bilirubin 2.1; AST 34, ALT 48, alkaline phosphatase 72 Scleral icterus present, patient appears jaundiced. Has abdominal distention, abdomen is tympanic to percussion, per my assessment appears to have some hepatomegaly 02/24--clinically, patient remained stable. He is reporting increased abdominal discomfort as well as constipation overnight. 20 year history of alcoholism resulting in alcoholic cirrhosis of liver with ascites. Abdominal imaging rev ealing mild amount of ascites. Underwent EGD yesterday afternoon with the findings of ue to intra-abdominal ascites. Mild splenomegaly and trace abdominal ascites. Gastroenterology following. Patient undergoing EGD this afternoon. Findings of hiatal hernia, inflammation and erosions found in the duodenal bulb. Given constipation and increased abdominal discomfort overnight and will start the patient on immediate release oxycodone 5 mg every 8 when necessary for pain. Additionally will obtain an ammonia level and start the patient on Senokot twice a day when necessary. Continue to Avoid ASA and NSAIDs, continue dietary restrictions with sodium 1-2 g daily, fluid restriction 1.5 L. He will need oral Lasix 20 mg daily and Aldactone 50 mg daily at D/C (2) Congestive heart failure Current Visit: Yes Status: Acute Assessment and Plan: mild-moderate CAD per [facility] in 12/24 revealing moderate one vessel CAD Systolic CHF with global HK EF 25% Presented with dyspnea, worse with exertion, decreased exercise tolerance, orthopnea, dizziness/lightheadedness, no abdominal distention, nausea and lower extremity edema BNP elevated on admission-2540 02/24--, continue to hold diuretics in the setting of IVON. BLE swelling improving, no longer dyspneic. Continue to closely monitor intake and output. Continues to have mild ascites, GI consult considering adding Aldactone. Weight stable. Positive fluid balance 210 ML. Reporting adequate urinary output however per chart review this is unclear. We will order strict I's and O's and discussed with nursing staff. Continue with Coreg at increased dose, patient tolerating well. Will need a repeat TTE in 3 months in outpatient setting (3) Acute kidney injury Current Visit: Yes Status: Acute Assessment and Plan: IVON 2/2 decreased oral intake and lasix avoid nephrotoxins and monitor renal function Monitor I&O strictly holding lasix with worsening of IVON Scr 1.57 GI recommends adding Aldactone will hold off for now; monitor renal function ove rnight (4) COPD (chronic obstructive pulmonary disease) Current Visit: No Status: Chronic Assessment and Plan: Per history, not in acute exacerbation (5) Abnormal liver function Current Visit: Yes Status: Acute Assessment and Plan: t bili 2.3 d bili 0.6 I bili 1.7 AST 61 ALT 117 ocurring in the setting of alcoholic cirrhosis, GI following in consultation (6) CAD (coronary artery disease) Current Visit: No Status: Acute Assessment and Plan: per hx Continue ASA, increase Coreg to 6.25 mg daily due to tachycardia, continue Lasix Currently chest pain-free Reporting epigastric and B/L upper quadrant pain described as a "pinching sensation" He reports he has been experiencing this intermittently throughout the last month 02/23- remains chest pain-free, continue Coreg, No events on tele, continue to monitor. (7) Dilated cardiomyopathy Current Visit: Yes Status: Resolved Assessment and Plan: As above (8) Alcohol abuse Current Visit: Yes Status: Acute Assessment and Plan: 20 year history of alcohol abuse reporting 6-8 drinks daily Reports that he has not had a drink since late December Does not appear to have S/SX of withdrawal at this time Denies auditory/visual hallucinations. He is without tremors Closely monitor; implement CIWA protocol B-12, thiamine and folate 02/23- Without s/sx of withdrawal. Last drink approximately 6 weeks ago. Continue CIWA and monitor. (9) DVT prophylaxis Current Visit: No Status: Acute Assessment and Plan: SC heparin - Time Spent with Patient Total time spent is greater than 50% in coordination of care (as documented) at patient's floor/unit and/or counseling patient: less than 15 minutes Plan of Care Discussed with: patient Internal Medicine: Result - Labs CBC & Chem 7: 02/24/18 03:43 02/24/18 03:43 Labs: Short CBC 02/23/18 02/24/18 Range/Units 04:55 03:43 WBC 7.9 9.7 (4.3-11.1) K/mcL Hgb 13.5 14.9 (12.9-16.9) g/dL Hct 41.2 46.3 (37.5-50.1) % Plt Count 176 207 (140-400) K/mcL Neutrophils # 6.6 8.3 (1.6-8.9) K/mcL BMP 02/23/18 02/24/18 04:55 03:43 Sodium 139 138 Potassium 4.0 3.7 Chloride 104 102 Carbon Dioxide 24 27 BUN 33 H 32 H Creatinine 1.56 H 1.57 H Glucose 100 112 H Calcium 9.0 8.9 Liver Function 02/23/18 02/24/18 Range/Units 04:55 03:43 Total Bilirubin 2.2 H 2.3 H (0.3-1.0) mg/dL Direct Bilirubin 0.5 H 0.6 H (0.0-0.2) mg/dL AST 76 H 61 H (13-39) Units/L ALT 112 H 117 H (7-52) Units/L Alkaline Phosphatase 72 85 (34-104) Units/L Albumin 3.7 4.0 (3.5-5.7) g/dL - ABG Interpretation ABG results: PT/INR, D-dimer PT 17.1 Seconds (9.4-12.1) H 02/22/18 11:49 - VTE Reasons for not Prescribing Prophylaxis: Treatment not Indicated - Low risk for VTE Deep Vein Thrombosis/Pulmonary Embolism Present on Admission: No Consult Discharge Plan - Plan Referrals: [facility] [Provider Group] (An appointment has been requested. The office will contact you at home to schedule an appointment. ) Richy Mc DO [Primary Care Provider] - (Please contact your provider to schedule and appointment. ) (2) Congestive heart failure Qualifiers: Heart failure type: biventricular Qualified Code(s): I50.82 - Biventricular heart failure (4) COPD (chronic obstructive pulmonary disease) Qualifiers: COPD type: emphysema Emphysema type: panlobular Qualified Code(s): J43.1 - Panlobular emphysema (6) CAD (coronary artery disease) Qualifiers: Coronary Disease-Associated Artery/Lesion type: [place] artery [place] vs. transplanted heart: [place] heart Associated angina: without angina Qualified Code(s): I25.10 - Atherosclerotic heart disease of [place] coronary artery without angina pectoris
[2018-02-24 13:50] LABS: Immunoglobulin A (CELIAC) 431 mg/dL (68-408)
[2018-02-24] MEDS: Ondansetron 4 MG/2 ML VIAL IVP PRN (17:47)
[2018-02-25 04:48] LABS: Albumin 3.9 g/dL (3.5-5.7); Albumin/Globulin Ratio 1.5 (1.1-2.2); Bilirubin,Direct 0.5 mg/dL (0.0-0.2); Bilirubin,Indirect 1.6 mg/dL (0.0-1.2); Bilirubin,Total 2.1 mg/dL (0.3-1.0); Globulin 2.6 g/dL (2.4-3.5); Total Protein 6.5 g/dL (6.4-8.9)
[2018-02-25] MEDS: *HR* Heparin 5,000 UNIT/ML VIAL SQ SCH ×2 (05:33→16:42)
[2018-02-25] MEDS: *HR* OxyCODONE Immed Rel 5 MG TABLET PO PRN ×3 (05:33→19:32)
[2018-02-25 08:03] LABS: Calcium 9.3 mg/dL (8.6-10.3)
[2018-02-25] MEDS: Spironolactone 25 MG TABLET PO SCH (09:28)
[2018-02-25] MEDS: Aspirin Enteric Coated 81 MG Tablet PO SCH (09:28)
[2018-02-25] MEDS: Thiamine (B-1) 100 MG TABLET PO SCH (09:28)
[2018-02-25] MEDS: Vitamin B Complex/Vit C/Vit E 1 EACH TABLET PO SCH (09:28)
[2018-02-25] MEDS: Folic Acid 1 MG TABLET PO SCH (09:28)
--- NOTE | 2018-02-25 11:02 | Cardiology Consult Note ---
<Gregoria Casanova - Last Filed: 02/25/18 11:04> Date of Encounter: 02/25/18 Time of Encounter: 09:00 Assessment and Plan (1) Congestive heart failure Current Visit: Yes Status: Chronic Per cardiology: -Patient reports non-compliance with medications. Stressed importance of medication regimen. -Known Non-ischemic cardiomyopathy possible related to ETOH abuse. -ECHO 12/2017 - EF 25%, dilated RV and LV, severe global LV systolic dysfunction, moderate pulmonary HTN -Currently euvolemic on exam. -Net negative 300ml, weight is down to 74.2kg from 79kg on admission. -CHF education reviewed with patient at length, patient educated when to call cardiology. -On BB, not on suzie/arb due to hypotension and IVON. -BNP admission 2458. -Reviewed GI note, who recommends aldactone, ordered. -Will repeat BNP, chest x-ray. -Will check limited TTE. Qualifiers: Heart failure type: biventricular Qualified Code(s): I50.82 - Biventricular heart failure (2) Acute kidney injury Current Visit: Yes Status: Acute Per cadiology: -IVON noted, improving. -Management per primary service. Discussion w patient/family: The assessment and plan as outlined above was discussed with the patient who expressed understanding and agreement. All questions were answered. Thank you for involving us in the care of your patient. Please call with any questions. Discussed and reviewed with Dr.John Franco. History of Present Illness Consult date: 02/24/18 Requesting physician: Haider Alan Consult reason: chf Chief complaint: shortness of breath History of present illness: Mr. Wiggins is a 58 year old male with a relevant past medical history of NICM, CAD, ETOH abuse, COPD, HTN who presented to [facility] with complaints of shortness of breath and edema. Patient reports he was not taking his previous medications including his lasix. He states his PCP told him that if he refrained from ETOH that he did not need to take his medications. Patient reports today, symptoms are improved. Denies shortness of breath or edema today. Of note, has not followed with cardiology since last hospital admission. Past Med Surg Social Fam HX - Past Medical History Attestation: Yes The following information was validated with the patient. Source: patient, old records reviewed Medical history: cardiomyopathy, COPD, hypertension Psychiatric history: no psych history - Past Surgical History Surgical History: no surgical history Additional surgical history: dental - Social History Smoking Status: Former smoker Smokeless Tobacco Status: No Alcohol use: none (6-8 BEERS/DAY X20 YRS - QUIT 12/2017) Drug use: marijuana - Family History Brother Living Status: Age at : 78 Father Living Status: Age at : 77 Cause of : lung cancer Hx Family Cardiac Disorders: No Mother Age: 80 Living Status: Still Living Hx Family Cardiac Disorders: No Sister Living Status: Age at : 70 Cause of : stroke Medications and Allergies Aspirin Enteric Coated [Aspirin EC] 81 mg PO DAILY #30 tablet. 01/03/18 [Rx] Allergy/AdvReac Type Severity Reaction Status Date / Time No Known Allergies Allergy Verified 02/20/18 18:56 All Systems Review: The remainder of the systems were reviewed and are negative - Cardiovascular Cardiovascular: as per HPI, dyspnea at rest, dyspnea on exertion, leg edema Physical Examination Vital Signs, Last 4 Hours Temp Pulse Resp BP Pulse Ox 02/25/18 09:09 97.8 F 87 17 105/69 97 General: Conversant, No Apparent Distress HEENT: Atraumatic, Normocephaly, Mucus Membranes Moist, Other (Jaundice noted. ) Neck: No JVD, Normal carotid pulses Cardiac: Reg Rate and Rhythm, Normal S1 and S2, No Murmur Lungs: Normal Breath Sounds, No Wheeze, Rales, Rhonchi Neuro: Alert and responsive, No focal deficits noted Abdomen: Soft, Non-Tender Skin: No rashes noted on visualized skin Musculoskeletal: No Chest Wall Tenderness Extremities: No Clubbing, No Cyanosis, No Edema, Normal Pulses Results 02/24/18 03:43 02/25/18 03:27 Lab Results Impressions KUB X-Ray 02/24/18 16:03 IMPRESSION: No acute abdominal radiographic abnormality. D/ / Mirela Ambriz Cha, MD / Mirela Ambriz Cha, MD Interpreting Provider: Mirela Ambriz Cha, MD Chest X-Ray 02/25/18 08:50 IMPRESSION: Near complete resolution of pulmonary edema. D/ / Remy Miles MD / Remy Miles MD Interpreting Provider: Remy Miles MD Active Medications Aspirin (Aspirin Ec) 81 mg PO DAILY [facility] Stop: 08/23/18 09:01 Last Admin: 02/25/18 09:28 Dose: 81 mg Carvedilol (Coreg) 6.25 mg PO BIDWM [facility]; Protocol Stop: 08/23/18 21:01 Last Admin: 02/25/18 09:28 Dose: 6.25 mg Folic Acid (Folic Acid) 1 mg PO DAILY [facility] Stop: 08/23/18 12:16 Last Admin: 02/25/18 09:28 Dose: 1 mg Heparin Sodium (Porcine) (Heparin) 5,000 unit SQ Q12HCO [facility] Stop: 08/23/18 18:01 Last Admin: 02/25/18 05:33 Dose: 5,000 unit Lorazepam (Ativan) 1 mg IVP Q1H PRN PRN Reason: Alcohol Withdrawal Stop: 08/23/18 12:11 Lorazepam (Ativan) 2 mg IVP Q4HR PRN PRN Reason: CIWA Score of 10-21 Stop: 08/23/18 12:11 Lorazepam (Ativan) 4 mg IVP Q4HR PRN PRN Reason: CIWA Score of 22-45 Stop: 08/23/18 12:11 Melatonin (Melatonin) 3 mg PO HS PRN PRN Reason: Insomnia Stop: 08/22/18 22:59 Last Admin: 02/23/18 21:18 Dose: 3 mg Naloxone HCl (Narcan) 0.4 mg IVP Q2MIN PRN PRN Reason: SEE COMMENTS Stop: 08/22/18 19:27 Ondansetron HCl (Zofran) 4 mg IVP Q6HR PRN; Protocol PRN Reason: Nausea And Vomiting Stop: 08/22/18 22:56 Last Admin: 02/24/18 17:47 Dose: 4 mg Oxycodone HCl (Roxicodone) 5 mg PO Q6HR PRN; Protocol PRN Reason: Moderate Pain Stop: 08/26/18 07:45 Last Admin: 02/25/18 05:33 Dose: 5 mg Polyethylene Glycol (Miralax) 17 gm PO DAILY PRN PRN Reason: Constipation Stop: 08/26/18 09:05 Senna (Senna) 8.6 mg PO BID PRN PRN Reason: Constipation Stop: 08/26/18 09:01 Simethicone (Gas-X) 80 mg PO TID PRN PRN Reason: Dyspepsia Stop: 08/26/18 02:13 Spironolactone (Aldactone) 25 mg PO DAILY [facility] Stop: 08/27/18 09:01 Last Admin: 02/25/18 09:28 Dose: 25 mg Thiamine HCl (Vitamin B-1) 100 mg PO DAILY [facility] Stop: 08/23/18 12:16 Last Admin: 02/25/18 09:28 Dose: 100 mg Vitamin B Complex/Vit C/Vit E (Stresstab) 1 each PO DAILY [facility] Stop: 08/23/18 12:16 Last Admin: 02/25/18 09:28 Dose: 1 each Laboratory Tests 02/20/18 02/24/18 02/24/18 14:29 03:43 03:43 Hgb 14.9 Creatinine 1.22 1.57 H 02/25/18 03:27 Hgb Creatinine 1.46 H - Imaging and Cardiology Chest Xray: report reviewed Echo: pending, report reviewed - EKG Interpretation EKG results cardiology: personally reviewed (ECG with ST, HR 105, non-spcecific T wave abnormality noted, similar to previous.), other (Not on telemetry.) Consult Discharge Plan - Plan Referrals: [facility] [place] [Provider Group] (An appointment has been requested. The office will contact you at home to schedule an appointment. ) Richy Mc, DO [Primary Care Provider] - (Please contact your provider to schedule and appointment. ) <Tomas Franco - Last Filed: 02/25/18 11:51> - Attending Attestation I have personally performed a face to face evaluation on this patient. I have reviewed and agree with the care plan. History and Exam by me shows: Known nonischemic cardiomyopathy. Has been noncompliant with medications, diet and follow up. Denies recent alcohol intake but does admit to alcohol since discharge. Would recheck echo but suspect worsening LV function and progressive symptoms of low outpt heart failure. Will add back medications as tolerated. Assessment and Plan Discussion w patient/family: The assessment and plan as outlined above was discussed with the patient and/or family members who expressed understanding and agreement. All questions were answered. Thank you for involving us in the care of your patient. Please call with any questions. History of Present Illness History of present illness: Mr. Wiggins is a 58 year old male All Systems Review: The remainder of the systems were reviewed and are negative Physical Examination Vital Signs, Last 4 Hours Temp Pulse Resp BP Pulse Ox 02/25/18 09:09 97.8 F 87 17 105/69 97 Results 02/24/18 03:43 02/25/18 03:27 Lab Results 02/25/18 02/25/18 03:27 08:49 Sodium 137 Potassium 4.0 Chloride 103 Carbon Dioxide 20 L BUN 34 H Creatinine 1.46 H Glucose 101 Calcium 9.3 Total Bilirubin 2.1 H AST 107 H ALT 172 H Alkaline Phosphatase 78 B-Natriuretic Peptide 2290 H
--- NOTE | 2018-02-25 12:57 | Internal Med Progress Note ---
Hospitalist Progress Note - Encounter Date of Encounter: 02/25/18 Time of Encounter: 12:54 - Subjective Interval History: No acute changes overnight, continuing to have abdominal discomfort. - Exam Vitals: Temp Pulse Resp BP Pulse Ox 97.8 F 87 17 105/69 97 02/25/18 09:09 02/25/18 09:09 02/25/18 09:09 02/25/18 09:09 02/25/18 09:09 Exam: PHYSICAL EXAMINATION: GENERAL: The patient is an ill appearing male in mild distress due to abdominal discomfort. He is alert and oriented x3. HEENT: Head is normocephalic and atraumatic. Extraocular muscles are intact. Pupils are equal, round, and reactive to light and accommodation. Scleral icterus resolved NECK: Supple. No carotid bruits. No lymphadenopathy or thyromegaly. LUNGS: Clear to auscultation AP and L. HEART: Regular rate and rhythm, S1, S2 without murmur rubs or gallops. ABDOMEN: Abdomen is soft and mildly distended without tenderness to palpation, hypoactive bowel sounds EXTREMITIES: Without any cyanosis, clubbing, rash, lesions or edema. NEUROLOGIC: Cranial nerves II through XII are grossly intact. SKIN: No ulceration or induration present. Jaundice improving - Assessment and Plan (1) Alcoholic cirrhosis of liver with ascites Current Visit: Yes Status: Suspected Assessment and Plan: Long-standing history of alcoholism reporting drinking 6-8 drinks per day for the last 20 years On presentation was noted to have altered liver function; total bilirubin 2.6, direct bilirubin 0.5, indirect bilirubin 2.1; AST 34, ALT 48, alkaline phosphatase 72 Scleral icterus present, patient appears jaundiced. Has abdominal distention, abdomen is tympanic to percussion, per my assessment appears to have some hepatomegaly 02/25--Mild ascites and abdominal discomfort persists. Bilirubin remains elevated. EGD completed without any obvious findings of cirrhosis. Although there may be some component of cirrhosis with a 20 year history of alcohol abuse. Consider cardiac hepatopathy as further cause of liver injury. Scleral icterus resolved and jaundice improving. Continue diuresis with Aldactone. Consider hepatorenal syndrome; start low dose midodrine 2.5 mg TID. (2) Congestive heart failure Current Visit: Yes Status: Chronic Assessment and Plan: mild-moderate CAD per [facility] in 12/24 revealing moderate one vessel CAD Systolic CHF with global HK EF 25% Presented with dyspnea, worse with exertion, decreased exercise tolerance, orthopnea, dizziness/lightheadedness, no abdominal distention, nausea and lower extremity edema BNP elevated on admission-2540 02/25--repeat TTE reveals reduced ejection fraction. TTE 12/30/17 reveals EF of 25%. Repeat study today 02/25/18 reveals EF 10-15%. Patient has been noncompliant with his medication regimen. Cardiology following consultation. Patient has been reeducated regarding importance of following medication regimen. Patient's weight down trending 79 KG on admission now 74.2 KG, net negative fluid volume -300 ml. euvolemic on exam without lower extremity edema. Coreg dose as been increased, continue Coreg at increased dose. Repeat chest x-ray reveals near complete resolution of pulmonary edema. BNP continues to be elevated at 2290. Per the recommendations of cardiology we will resume diuresis and start the patient on spironolactone 25 mg by mouth daily. Currently resting comfortably on room air without respiratory distress. (3) Acute kidney injury Current Visit: Yes Status: Acute Assessment and Plan: IVON 2/2 decreased oral intake and lasix avoid nephrotoxins and monitor renal function Monitor I&O strictly holding lasix with worsening of IVON Scr 1.57 GI recommends adding Aldactone will hold off for now; monitor renal function overnight 02/25--improving overnight withholding diuretics. Continue to closely monitor renal function. (4) COPD (chronic obstructive pulmonary disease) Current Visit: No Status: Chronic Assessment and Plan: Per history, not in acute exacerbation (5) Abnormal liver function Current Visit: Yes Status: Acute Assessment and Plan: t bili 2.3 d bili 0.6 I bili 1.7 AST 61 ALT 117 Occurring in the setting of alcoholic cirrhosis,, also consider hepatopathy with severe systolic heart failure ejection fraction 10-15% GI following in consultation (6) CAD (coronary artery disease) Current Visit: No Status: Acute Assessment and Plan: per hx Continue ASA, increase Coreg to 6.25 mg daily due to tachycardia, continue Lasix Currently chest pain-free Reporting epigastric and B/L upper quadrant pain described as a "pinching sensation" He reports he has been experiencing this intermittently throughout the last month 02/23- remains chest pain-free, continue Coreg, No events on tele, continue to monitor. (7) Dilated cardiomyopathy Current Visit: Yes Status: Resolved Assessment and Plan: As above (8) Alcohol abuse Current Visit: Yes Status: Acute Assessment and Plan: 20 year history of alcohol abuse reporting 6-8 drinks daily Reports that he has not had a drink since late December Does not appear to have S/SX of withdrawal at this time Denies auditory/visual hallucinations. He is without tremors Closely monitor; implement CIWA protocol B-12, thiamine and folate 02/23- Without s/sx of withdrawal. Last drink approximately 6 weeks ago. Continue CIWA and monitor. (9) DVT prophylaxis Current Visit: No Status: Acute Assessment and Plan: SC heparin - Time Spent with Patient Total time spent is greater than 50% in coordination of care (as documented) at patient's floor/unit and/or counseling patient: less than 15 minutes Plan of Care Discussed with: patient Internal Medicine: Result - Labs CBC & Chem 7: 02/24/18 03:43 02/25/18 03:27 Labs: BMP 02/25/18 03:27 Sodium 137 Potassium 4.0 Chloride 103 Carbon Dioxide 20 L BUN 34 H Creatinine 1.46 H Glucose 101 Calcium 9.3 Liver Function 02/25/18 Range/Units 03:27 Total Bilirubin 2.1 H (0.3-1.0) mg/dL Direct Bilirubin 0.5 H (0.0-0.2) mg/dL AST 107 H (13-39) Units/L ALT 172 H (7-52) Units/L Alkaline Phosphatase 78 (34-104) Units/L Albumin 3.9 (3.5-5.7) g/dL - ABG Interpretation ABG results: PT/INR, D-dimer PT 17.1 Seconds (9.4-12.1) H 02/22/18 11:49 - Impressions Impressions [facility] X-Ray 02/24/18 16:03 IMPRESSION: No acute abdominal radiographic abnormality. D/ / Mirela Ambriz Cha, MD / Mirela Ambriz Cha, MD Interpreting Provider: Mirela Ambriz Cha, MD Chest X-Ray 02/25/18 08:50 IMPRESSION: Near complete resolution of pulmonary edema. D/ / Remy Miles MD / Remy Miles MD Interpreting Provider: Remy Miles MD - VTE Reasons for not Prescribing Prophylaxis: Treatment not Indicated - Low risk for VTE Deep Vein Thrombosis/Pulmonary Embolism Present on Admission: No Consult Discharge Plan - Plan Referrals: [facility] [Provider Group] (An appointment has been requested. The office will contact you at home to schedule an appointment. ) Richy Mc DO [Primary Care Provider] - (Please contact your provider to schedule and appointment. ) (2) Congestive heart failure Qualifiers: Heart failure type: biventricular Qualified Code(s): I50.82 - Biventricular heart failure (4) COPD (chronic obstructive pulmonary disease) Qualifiers: COPD type: emphysema Emphysema type: panlobular Qualified Code(s): J43.1 - Panlobular emphysema (6) CAD (coronary artery disease) Qualifiers: Coronary Disease-Associated Artery/Lesion type: [place] artery [place] vs. transplanted heart: [place] heart Associated angina: without angina Qualified Code(s): I25.10 - Atherosclerotic heart disease of [place] coronary artery without angina pectoris
[2018-02-25] MEDS ORDERED: *HR* Heparin 5,000 UNIT/ML VIAL IVP ONE (13:30)
[2018-02-25] MEDS ORDERED: Aspirin Enteric Coated 81 MG Tablet PO ONE (13:30)
[2018-02-25] MEDS ORDERED: Thiamine (B-1) 100 MG TABLET PO ONE (13:30)
[2018-02-25] MEDS ORDERED: Furosemide 40 MG TABLET PO ONE (13:30)
[2018-02-25] MEDS ORDERED: Vitamin B Complex/Vit C/Vit E 1 EACH TABLET PO ONE (13:30)
[2018-02-25] MEDS ORDERED: Folic Acid 1 MG TABLET PO ONE (13:30)
[2018-02-25] MEDS ORDERED: Naloxone 0.4 MG/ML INJ IVP PRN (17:26)
--- NOTE | 2018-02-25 21:59 | Electrocardiograph Report ---
[place] [address] Test Date: 2018-02-20 Pat Name: Lewis Wiggins Department: EXAM2 Room: 3B47 Gender: M Supervisor Records Change: : 1960 Requested By: Tomas Waldrop Order Number: [id number] Reading MD: Delma Elizondo Measurements Intervals [place] Rate: 111 P: 51 MS: 130 QRS: 27 QRSD: 90 T: 224 QT: 361 QTc: 491 Interpretive Statements Sinus tachycardia Left atrial enlargement Nonspecific T abnormalities, diffuse leads Borderline prolonged QT interval Electronically Signed On 02-25-2018 21:58:26 EDT by Delma Elizondo
[2018-02-26] MEDS: *HR* OxyCODONE Immed Rel 5 MG TABLET PO PRN ×2 (02:52→08:50)
[2018-02-26] MEDS: *HR* Heparin 5,000 UNIT/ML VIAL SQ SCH (05:05)
[2018-02-26 05:36] LABS: Basophils % 0.1 %; Eosinophils # 0.1 K/mcL (0.0-0.6); Eosinophils % 0.6 %; Hematocrit 43.1 % (37.5-50.1); Hemoglobin 13.9 g/dL (12.9-16.9); Immature Granulocytes % 0.3 % (0-4); Lymphocytes # 0.6 K/mcL (0.6-4.6); Lymphocytes % 6.9 %; Mean Corpuscular HGB Conc 32.3 g/dL (31.6-35.5); Mean Corpuscular Hemoglobin 29.6 pg (28.0-33.3); Mean Corpuscular Volume 91.9 fL (83.0-100.0); Mean Platelet Volume 12.8 fL (9.4-12.4); Monocytes # 0.5 K/mcL (0.0-1.3); Neutrophils # 7.7 K/mcL (1.6-8.9); Platelet Count 174 K/mcL (140-400); Red Blood Count 4.69 M/mcL (4.19-5.50); Segmented Neutrophils % 86.1 %
[2018-02-26 05:55] LABS: BUN/Creatinine Ratio 26 (6-26); Blood Urea Nitrogen 37 mg/dL (6-20); Calcium 9.1 mg/dL (8.6-10.3); Carbon Dioxide 25 mEq/L (23-29); Chloride 104 mEq/L (98-107); Glucose 145 mg/dL (70-105); Osmolality,Calculated 295 (280-300); Potassium 3.8 mEq/L (3.5-5.1); Sodium 137 mEq/L (136-145); eGFR For Non-African Americans 50 (> 60)
[2018-02-26] MEDS: Spironolactone 25 MG TABLET PO SCH (08:43)
[2018-02-26] MEDS: Vitamin B Complex/Vit C/Vit E 1 EACH TABLET PO SCH (08:43)
[2018-02-26] MEDS: Folic Acid 1 MG TABLET PO SCH (08:43)
[2018-02-26] MEDS: Thiamine (B-1) 100 MG TABLET PO SCH (08:43)
[2018-02-26] MEDS: Aspirin Enteric Coated 81 MG Tablet PO SCH (08:43)
[2018-02-26 10:00] LABS: ANA IgG by ELISA NONE DETECTED (None Detected); Tissue Transglutaminase IgA 0 U/mL (0-3)
[2018-02-26] MEDS ORDERED: Furosemide 20 MG TABLET PO PRN (10:28)
[2018-02-26] MEDS ORDERED: Furosemide 20 MG TABLET PO SCH (10:30)
--- NOTE | 2018-02-26 10:31 | Cardiology Progress Note ---
Date of Encounter: 02/26/18 Time of Encounter: 09:00 Assessment and Plan (1) Congestive heart failure Current Visit: Yes Status: Chronic Per cardiology: -Patient reports non-compliance with medications. Stressed importance of medication regimen. Also admited to some drinking after last hospital admission. -Known Non-ischemic cardiomyopathy possible related to ETOH abuse. -ECHO 12/2017 - EF 25%, dilated RV and LV, severe global LV systolic dysfunction, moderate pulmonary HTN -Currently euvolemic on exam. -Net negative 1400ml, weight is down to 75.5kg from 79kg on admission. -CHF education reviewed with patient at length, patient educated when to call cardiology. -On BB, not on suzie/arb due to IVON. -BNP admission 2458. -Aldactone ordered yesterday. -Repeat TTE with LVEF 10-15%, discussed at length regarding medication compliance, refraining from alcohol, and close outpatient follow up. -Will add low dose lasix daily. CHF education reveiwed at length with patient. -Consider addition of suzie/arb in outpateint setting if renal function normalized and BP will tolerate. -Consider referral to [facility] for advanced heart failure in outpatient setting. -Cardiology will sign off and will follow in outpatient setting. Follow up set. Qualifiers: Heart failure type: biventricular Qualified Code(s): I50.82 - Biventricular heart failure (2) Acute kidney injury Current Visit: Yes Status: Acute Per cadiology: -IVON noted, improving. -Management per primary service. Discussion w patient/family: The assessment and plan as outlined above was discussed with the patient who expressed understanding and agreement. All questions were answered. Thank you for involving us in the care of your patient. Please call with any questions. Discussed and reviewed with Dr.John Franco. Subjective Principal diagnosis: CHF Interval history: Patient reports symptom improvement today. Does still report some mild shortness of breath and mild abdominal distention. Objective Vital Signs, Last 4 Hours Temp Pulse Resp BP Pulse Ox 02/26/18 09:05 96 02/26/18 07:12 97.6 F 88 16 112/80 96 General: Conversant, No Apparent Distress HEENT: Atraumatic, Normocephaly, Mucus Membranes Moist Neck: No JVD, Normal carotid pulses Cardiac: Reg Rate and Rhythm, Normal S1 and S2, No Murmur Lungs: Normal Breath Sounds, No Wheeze, Rales, Rhonchi Neuro: Alert and responsive, No focal deficits noted Abdomen: Non-Tender, Other (Mildly distended. ) Skin: No rashes noted on visualized skin Musculoskeletal: No Chest Wall Tenderness Extremities: No Clubbing, No Cyanosis, No Edema, Normal Pulses Results 02/26/18 05:04 02/26/18 05:04 Lab Results Impressions Chest X-Ray 02/25/18 08:50 IMPRESSION: Near complete resolution of pulmonary edema. D/ / Remy Miles MD / Remy Miles MD Interpreting Provider: Remy Miles MD Active Medications Aspirin (Aspirin Ec) 81 mg PO DAILY [facility] Stop: 08/23/18 09:01 Last Admin: 02/26/18 08:43 Dose: 81 mg Carvedilol (Coreg) 6.25 mg PO BIDWM [facility]; Protocol Stop: 08/23/18 21:01 Last Admin: 02/26/18 08:43 Dose: 6.25 mg Folic Acid (Folic Acid) 1 mg PO DAILY [facility] Stop: 08/23/18 12:16 Last Admin: 02/26/18 08:43 Dose: 1 mg Furosemide (Lasix) 20 mg PO DAILY PRN PRN Reason: Edema Stop: 08/28/18 10:29 Heparin Sodium (Porcine) (Heparin) 5,000 unit SQ Q12HCO [facility] Stop: 08/23/18 18:01 Last Admin: 02/26/18 05:05 Dose: 5,000 unit Lorazepam (Ativan) 1 mg IVP Q1H PRN PRN Reason: Alcohol Withdrawal Stop: 08/23/18 12:11 Lorazepam (Ativan) 2 mg IVP Q4HR PRN PRN Reason: CIWA Score of 10-21 Stop: 08/23/18 12:11 Lorazepam (Ativan) 4 mg IVP Q4HR PRN PRN Reason: CIWA Score of 22-45 Stop: 08/23/18 12:11 Melatonin (Melatonin) 3 mg PO HS PRN PRN Reason: Insomnia Stop: 08/22/18 22:59 Last Admin: 02/23/18 21:18 Dose: 3 mg Midodrine (Proamatine) 2.5 mg PO 0800,1200,1700 [facility] Stop: 08/27/18 17:01 Last Admin: 02/26/18 08:43 Dose: 2.5 mg Naloxone HCl (Narcan) 0.4 mg IVP Q2MIN PRN PRN Reason: SEE COMMENTS Stop: 08/27/18 17:27 Ondansetron HCl (Zofran) 4 mg IVP Q6HR PRN; Protocol PRN Reason: Nausea And Vomiting Stop: 08/22/18 22:56 Last Admin: 02/24/18 17:47 Dose: 4 mg Oxycodone HCl (Roxicodone) 5 mg PO Q6HR PRN; Protocol PRN Reason: Moderate Pain Stop: 08/26/18 07:45 Last Admin: 02/26/18 08:50 Dose: 5 mg Polyethylene Glycol (Miralax) 17 gm PO DAILY PRN PRN Reason: Constipation Stop: 08/26/18 09:05 Senna (Senna) 8.6 mg PO BID PRN PRN Reason: Constipation Stop: 08/26/18 09:01 Last Admin: 02/25/18 19:32 Dose: 8.6 mg Simethicone (Gas-X) 80 mg PO TID PRN PRN Reason: Dyspepsia Stop: 08/26/18 02:13 Spironolactone (Aldactone) 25 mg PO DAILY [facility] Stop: 08/27/18 09:01 Last Admin: 02/26/18 08:43 Dose: 25 mg Thiamine HCl (Vitamin B-1) 100 mg PO DAILY [facility] Stop: 08/23/18 12:16 Last Admin: 02/26/18 08:43 Dose: 100 mg Vitamin B Complex/Vit C/Vit E (Stresstab) 1 each PO DAILY [facility] Stop: 08/23/18 12:16 Last Admin: 02/26/18 08:43 Dose: 1 each Laboratory Tests 02/25/18 02/26/18 02/26/18 03:27 05:04 05:04 Hgb 13.9 Creatinine 1.46 H 1.44 H - Imaging and Cardiology Chest Xray: report reviewed Echo: report reviewed Cardiac cath: report reviewed - EKG Interpretation EKG results cardiology: other (Not on telemetry.) - VTE Reasons for not Prescribing Prophylaxis: Treatment not Indicated - Low risk for VTE Deep Vein Thrombosis/Pulmonary Embolism Present on Admission: No Consult Discharge Plan - Plan Referrals: [facility] [place] [Provider Group] (An appointment has been requested. The office will contact you at home to schedule an appointment. ) Richy Mc DO [Primary Care Provider] - (Please contact your provider to schedule and appointment. )
[2018-02-26 12:20] VITALS: BP 120/69
--- NOTE | 2018-02-26 12:46 | Discharge Summary ---
- NOTES TO OUTPATIENT PROVIDER Notes to Outpatient Provider: History of nonischemic cardiomyopathy possibly related to EtOH abuse. Patient reports noncompliance with medication regimen. Presents with acute exacerbation of CHF. Workup reveals further decreased ejection fraction 10-15%. During admission found to have elevated liver function, jaundice and scleral icterus. Possibly related to some mild component of alcoholism most likely cardiac hepatopathy. Received IV diuresis, developed IVON; not solely caused by medications consider hepatorenal syndrome with severely reduced EF. Renal function recovering. Cardiology and GI following and recommended Lasix, midodrine, Aldactone at [place]. May need to add a/arm in outpatient setting if renal function normalizes. Patient received multiple sessions of education regarding diet, lifestyle changes, medication compliance and refraining from alcohol. Will need close follow-up with cardiology and PCP cardiology to schedule, lab request for PCP pending. Will need follow-up with GI within 2-3 weeks; with request pending Orders not resulted at time of discharge: Pending orders 02/22/18 11:49 Alpha-1-AT Deficiency Reflex Routine 02/23/18 15:31 Surgical Pathology [PTH] Routine 02/27/18 04:00 Basic Metabolic Panel AM 0400 Complete Blood Count [HEME] AM 0400 02/28/18 04:00 Basic Metabolic Panel AM 0400 Complete Blood Count [HEME] AM 0400 Date of Encounter: 02/26/18 Time of Encounter: 12:42 - Discharge Diagnosis (1) Alcoholic cirrhosis of liver with ascites Priority: Primary Status: Suspected (2) Congestive heart failure Priority: Secondary Status: Chronic Qualifiers: Heart failure type: biventricular Qualified Code(s): I50.82 - Biventricular heart failure (3) Acute kidney injury Priority: Secondary Status: Acute (4) COPD (chronic obstructive pulmonary disease) Priority: Secondary Status: Chronic Qualifiers: COPD type: emphysema Emphysema type: panlobular Qualified Code(s): J43.1 - Panlobular emphysema (5) Abnormal liver function Priority: Secondary Status: Acute (6) CAD (coronary artery disease) Priority: Secondary Status: Acute Qualifiers: Coronary Disease-Associated Artery/Lesion type: [place] artery [place] vs. transplanted heart: sioux heart Associated angina: without angina Qualified Code(s): I25.10 - Atherosclerotic heart disease of [place] coronary artery without angina pectoris (7) Dilated cardiomyopathy Priority: Secondary Status: Resolved (8) Alcohol abuse Priority: Secondary Status: Acute (9) DVT prophylaxis Priority: Secondary Status: Acute Hospital course: Mr. Wiggins is a 58 year old male with PMH significant for severely reduced ejection fraction secondary to nonischemic cardiomyopathy. Presents to the ED with increasing SOB for the last 5-6 months. Reports that this is been worse over the last 1-2 weeks. He is reporting a functional decline and worsening dyspnea with exertion as well as decreasing exercise tolerance, orthopnea, dizzy lightheadedness with standing and lower extremity edema as well as abdominal bloating and nausea. On admission patient found to have altered liver function as well as scleral icterus and jaundice. Has a past medical history of alcohol abuse drinking approximately 6-8 beers daily for approximately 20 years. Concerns for alcoholic cirrhosis, GI consult and EGD completed. EGD without obvious findings however patient may have some mild cirrhosis secondary to alcohol abuse. Abdominal imaging reveals a mild amount of ascites. Most of the patient's symptoms are likely caused by hepatopathy. Cardiology seeing in consultation a patient undergoing diuresis throughout stay. His Weight stabilized and returned to baseline, swelling improved and dyspnea subsided. However, patient developed an IVON; this is likely exacerbated by IV diuretics; also, there is a component of hepatorenal syndrome giving severely reduced ejection fraction. Findings discussed with GI and cardiology who recommend starting the patient on Midodrine. The Patient's symptoms improved, scleral icterus resolved, jaundice resolving. Continues to have abnormal liver function however given the setting of severely reduced EF and hepatopathy this is likely the cause. However, there may be a component of alcoholism contributed to this as well. He is being discharged home with prescriptions for an increased dose of Coreg, he is also receiving Midodrine, Lasix and Aldactone. He is to have follow-up BMP in 3 days. He is to follow-up with cardiology in 1 week and primary care physician in 3-5 days. I, there is a prep request for the patient to follow-up with GI in 2-3 weeks to further monitor renal function. He was given extensive education multiple times regarding, daily weights, 1.5 L fluid restriction, dietary compliance with low sodium diet as well as increasing protein, medication compliance and total cessation of alcohol use. With the patient's permission this was also discussed with mother who was at the bedside. The patient and his mother both verbalize understanding denies any further questions at this time. Also of note, cardiology is going to refer the patient to advanced heart failure clinic at the [facility]. The patient may benefit from cardiac rehabilitation Discharge discussed with: patient, family, nurse, industrial rehabilitation consultant - Time Spent with Patient Total time spent providing and/or coordinating discharge services: Less than 30 minutes - Discharge Medications Prescriptions: Carvedilol [Coreg] 6.25 mg PO BIDWM 30 Days #60 tablet Furosemide [Lasix] 20 mg PO DAILY 30 Days #30 tab Midodrine [ProAmatine] 2.5 mg PO 0800,1200,1700 30 Days #20 tablet Spironolactone [Aldactone] 50 mg PO DAILY 30 Days #30 tablet Home Medications: Aspirin Enteric Coated [Aspirin EC] 81 mg PO DAILY #30 tablet. 01/03/18 [Rx] Carvedilol [Coreg] 6.25 mg PO BIDWM 30 Days #60 tablet 02/26/18 [Rx] Furosemide [Lasix] 20 mg PO DAILY 30 Days #30 tab 02/26/18 [Rx] Midodrine [ProAmatine] 2.5 mg PO 0800,1200,1700 30 Days #20 tablet 02/26/18 [Rx] Spironolactone [Aldactone] 50 mg PO DAILY 30 Days #30 tablet 02/26/18 [Rx] Allergies/Adverse Reactions: Allergy/AdvReac Type Severity Reaction Status Date / Time No Known Allergies Allergy Verified 02/20/18 18:56 Date of admission: 02/25/18 17:26 Primary care physician: Richy Mc Consults: 02/22/18 09:22 Consult to Gastroenterology [CONS] Routine Consulting Provider: G[facility]enter[facility] Reason for Consult: Patient presenting with abdominal pain, nausea, weight loss, night sweats and jaundice. Hepatosplenomegaly on CT, gallbladder wall thickening and cholelithiasis. Time Notified: 09:24 Call Completed: Yes 02/24/18 16:17 Consult to Cardiology [CONS] Routine Comment: Consulting Provider: Cardiology [facility] Reason for Consult: ASSIST WITH DIURESIS, CHF dx, also has congestive hepatopathy Time Notified: 16:18 Call Completed: Yes Discharging clinician: Haider Alan Anticipated date of discharge: 02/26/18 - Constitutional Vitals: Temp Pulse Resp BP Pulse Ox 98.2 F 80 18 120/69 94 02/26/18 12:19 02/26/18 12:19 02/26/18 12:19 02/26/18 12:19 02/26/18 12:19 General appearance: Present: A&O X 3, no acute distress, answers questions appropriately Exam: PHYSICAL EXAMINATION: GENERAL: The patient is an ill appearing male in mild distress due to abdominal discomfort. He is alert and oriented x3. HEENT: Head is normocephalic and atraumatic. Extraocular muscles are intact. Pupils are equal, round, and reactive to light and accommodation. Scleral ict erus resolved NECK: Supple. No carotid bruits. No lymphadenopathy or thyromegaly. LUNGS: Clear to auscultation AP and L. HEART: Regular rate and rhythm, S1, S2 without murmur rubs or gallops. ABDOMEN: Abdomen is soft and mildly distended without tenderness to palpation, NABS EXTREMITIES: Without any cyanosis, clubbing, rash, lesions or edema. NEUROLOGIC: Cranial nerves II through XII are grossly intact. SKIN: No ulceration or induration present. Jaundice resolving - Patient Status Disposition: Home, Self-Care Condition: Good Functional capacity at discharge: independent ambulation Overall status at discharge: patient is progressing back to baseline - Ambulatory Orders Ambulatory Orders: Basic Metabolic Panel [CHEM] Time Frame: 3 Days, Facility: [facility], Location: Lab - Discharge Instructions Instructions: Heart Failure (DC), Pacemaker (DC), Chronic Obstructive Pulmonary Disease (DC) Follow Up With: [facility] [place] [Provider Group] (An appointment has been requested. The office will contact you at home to schedule an appointment. ) Richy Mc DO [Primary Care Provider] - (Please contact your provider to schedule and appointment. ) - Diet and Activity Activity: increase activity as tolerated, resume usual activities as tolerated Diet: low fat, low cholesterol, low salt diet - VTE Reasons for not Prescribing Prophylaxis: Treatment not Indicated - Low risk for VTE Deep Vein Thrombosis/Pulmonary Embolism Present on Admission: No
[2018-02-28 08:17] LABS: A1A SZ Specimen WHOLE BLOOD; Alpha-1-Antitrypsin S Allele NEGATIVE; Alpha-1-Antitrypsin Z Allele NEGATIVE
[2018-03-01 09:09] LABS: Alpha-1-Antitrypsin 175 mg/dL (90-200)
== END 2018-02-26 13:31 | disposition home or self-care (01) | DRG 314 ==
LOC: EMEROOARM 14:04 → 3BNU 14:04 → SUATTDRO 18:07 → 3BNU 19:00
PROVIDERS: ADMIT Internal Medicine; ATTEND Internal Medicine
PROC: ENDOEBX (2018-02-23 14:00)